=== PATIENT | female | born 1990 | race Caucasian/White ===

== ENCOUNTER 2019-08-05 17:22 | Emergency (ER) | payer MEDICAID, SELFPAY ==
[2019-08-05 17:24] VITALS: BP 130/81; PULSE 122; RESP 14; TEMP 37.4; O2SAT 100; BMI 33.0
--- NOTE | 2019-08-05 17:47 | ED.DCSUM_ITS ---
- ER Visit Summary Date of Service: 08/05/19 Chief Complaint: Nausea vomiting, urinary tract infection History of Present Illness: The patient is a 28 F who presents with nausea, vomiting, chills that became worse today. Patient was seen yesterday at an urgent care. Patient states she was diagnosed with a urinary tract infection at that time. Patient states she received injections of Rocephin in her hips. Patient states she was given a prescription for an antibiotic. Patient is currently on Keflex. Patient states she is presently 15 weeks . Patient states she is having persistent pain in her right flank. 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 She states she has not seen her HIDE MEASURING MACHINE OPERATOR yet for this . Physical Examination: Vital signs are stable except for a mild tachycardia of 122. Patient is afebrile. Patient is in no acute distress. Oral mucosa is pink and moist. Neck is supple. Trachea is midline. There is no JVD noted. Heart was regular rate and rhythm. Lungs are clear and equal bilaterally. Abdomen is soft. Bowel sounds are normal. There is some mild right upper quadrant tenderness. There is no rebound or guarding. There is no suprapubic tenderness. There is some right CVA tenderness. Cranial nerves II through XII are intact. There are no focal motor or sensory deficits noted. Test Results: CBC shows a slight leukocytosis of 11.5. Comprehensive metabolic profile was within normal limits. Urinalysis does not show any evidence of urinary tract infection. Quantitative hCG was 38,047. Ultrasound of the pelvis was obtained. There is an intrauterine at approximate 12 to 13 weeks with a low-lying placenta. Ultrasound of the kidneys and ureter were obtained due to the right flank pain. There is no abnormality of the kidneys or ureter. There is an incidental finding of cholelithiasis. These were interpreted by the radiologist and reviewed by myself. Emergency Department Course and Treatment: Patient was given IV fluids and Tylenol here. Patient felt better on reevaluation. Patient was given her results. Patient was instructed to follow-up with her HIDE MEASURING MACHINE OPERATOR in 5 to 7 days. Patient understood and was agreeable with the plan. All questions were answered. Disposition: Discharge home Impression: Right flank pain This note was generated with [employer] dictation software. It may contain incorrect words, spelling, and punctuation that were not noted in review of the chart prior to signing ED Disposition - Plan for ED Patient: Disposition: Home or Assisted Living Diagnosis: Right flank pain, Additional Instructions: Continue Tylenol as needed for pain. Follow-up with your HIDE MEASURING MACHINE OPERATOR in 5 to 7 days.
[2019-08-05 18:04] LABS: Bacteria 0 SEEN /hpf (None Seen); Mucous, Urine 0 SEEN /hpf (<or=2+); Red Blood Cells-Urine 0 SEEN /hpf (0-5)
[2019-08-05 18:07] LABS: Color, Urine Yellow (Yellow); Glucose, Dipstick Normal (Normal); Ketone-Dipstick Negative (Negative); Leukocyte Esterase-Dipstick 25 /ul (Negative); Nitrite-Dipstick Negative (Negative); Occult Blood-Urine Negative /ul (Negative); Protein-Dipstick 15 mg/dl (Negative); Urine Bilirubin Dipstick Negative (Negative); Urine Clarity Clear (Clear); Urine Urobilinogen 1 mg/dl (Normal)
[2019-08-05 18:09] LABS: Absolute Lymphocyte Count 1.05 X10^3/uL (0.83-4.51); Absolute Neutrophil Count 9.6 X10^3/uL (2.0-7.7); Basophil# 0.02 X10^3/uL; Basophil% 0.2 % (0-1); Eosinophil# 0.03 X10^3/uL; Eosinophils% 0.3 % (0-5); Hematocrit 38.3 % (37-47); Hemoglobin 12.9 g/dL (12.0-15.0); Lymphocyte # 1.05 X10^3/ul (4.0); Lymphocyte % 9.2 % (19-41); Mean Corp Hgb Conc 33.7 g/dL (32-36); Mean Corpuscular Hgb 31.9 pg (27.0-32.0); Mean Corpuscular Volume 94.6 fL (81-99); Monocyte# 0.72 X10^3/uL; Monocyte% 6.3 % (0-10); NRBC Flagged by Analyzer 0 % (0-5); Neutrophil # 9.61 X10^3/uL (2.7-7.7); Neutrophil % 83.7 % (47-70); Platelet Count 220 K/mm3 (150-450); RBC Distribution Width CV 12.7 % (11.6-14.6); Red Blood Count 4.05 M/mm3 (4.2-5.4); White Blood Count 11.5 K/mm3 (4.4-11.0)
[2019-08-05 18:14] LABS: Squamous Epithelial Cells - UA 0-5 SEEN /hpf (5-10); White Blood Cells 0-5 SEEN /hpf (0-5)
[2019-08-05] MEDS: Acetaminophen 500 MG Tablet 1000 MG PO (18:21)
[2019-08-05] MEDS: 0.9% Normal Saline 1,000 ML 1000 ML IV (18:21)
[2019-08-05 18:23] VITALS: BP 130/81; PULSE 122; RESP 14; TEMP 37.4; O2SAT 100
[2019-08-05 18:30] LABS: ALB/GLOB Ratio 0.9 RATIO (0.9-2.4); AST(SGOT) 37 U/L (15-37); Alanine Aminotransfer ALT/SGPT 37 U/L (13-56); Albumin, Serum 3.4 g/dL (3.2-5.0); Alkaline Phosphatase 115 U/L (45-117); Anion Gap 7 (5-15); BUN 6 mg/dL (7-18); BUN/Creat Ratio 10.6 RATIO (10-20); Chloride 104 mmol/L (98-107); Creatinine, Serum 0.57 mg/dL (0.55-1.02); EST Glomerular Filtration Rate 135 mL/min (>60); Est Glom Filt Rate - Afr Amer 164 mL/min (>60); Estimated Creatinine Clearance 111.87 ml/min; Globulin 3.7 g/dL (2.2-4.2); Glucose 79 mg/dL (74-106); Potassium 3.7 mmol/L (3.5-5.1); Protein, Total 7.1 g/dL (6.4-8.2); Sodium Level 136 mmol/L (136-145)
--- NOTE | 2019-08-05 19:43 | US_ITS ---
STUDY: FIRST TRIMESTER OBSTETRICAL ULTRASOUND REASON FOR EXAM: Female, 28 years old abdominal cramps flank pain LMP: TECHNIQUE: Transabdominal and transvaginal TECHNICAL QUALITY: Adequate. PRIOR ULTRASOUND: None. FINDINGS: There is visualization of a single gestational sac in a normal intrauterine position.. The gestational sac shape is within normal limits. Yolk sac is nonvisualized. Low-lying anterior placenta is noted covering the cervical os consistent with placenta previous There is visualization of a live embryo. The crown-rump length (CRL) measures 5.8 cm, indicating an estimated gestational age (EGA) of 12 weeks, 3 days. There is demonstrated cardiac activity with a heart rate of 167 bpm. The estimated gestation age (EGA) by LMP is 15 weeks, 6 days. The estimated date of delivery (MARCIN) by LMP is January 21, 2020 . The estimated gestation age (EGA) by US is 12 weeks, 3 days. The estimated date of delivery (MARCIN) by US is February 14, 2020. The uterus measures 13.6 x 9.7 x 8.1 cm. There is no demonstrated uterine fibroid. Cervical length is 3.3 cm Normal ovaries are not visualized. There is no adnexal mass There is no fluid in the cul de sac. US/Init OB < 14Wks US IMPRESSION: Viable intrauterine gestation approximately 12-13 weeks gestational age. Low-lying placenta currently covering the internal os. Cervical length 3.3 cm Recommend follow-up studies to assess for placental localization later in Electronically Signed: Quique Gutierrez MD at 21:39 EST , Service support ,
--- NOTE | 2019-08-05 19:43 | US_ITS ---
STUDY: RENAL ULTRASOUND - COMPLETE REASON FOR EXAM: Female, 28 years old. Right flank pain TECHNIQUE: Ultrasound evaluation of the kidneys was performed with real-time and static martinez-scale imaging. COMPARISON: None. FINDINGS: RIGHT KIDNEY: Normal location of the right kidney, which is normal in size. The right kidney measures 12.1 x 5.6 x 4.4 cm. There is a normal cortex of the right kidney. The renal cortex measures 1.8 cm. There is no right renal mass or cyst. There are no right renal calculi. There is no right hydronephrosis. DISTAL RIGHT URETER: There is non-visualization of the distal right ureter. There is no demonstrated right ureterovesical junction calculus. There is a visualized right ureteral jet. LEFT KIDNEY: Normal location of the left kidney, which is normal in size. The left kidney measures 11.1 x 5.4 x 5.2 cm. There is a normal cortex of the left kidney. The renal cortex measures 1.9 cm. There is no left renal mass or cyst. There are no left renal calculi. There is no left hydronephrosis. DISTAL LEFT URETER: There is non-visualization of the distal left ureter. There is no demonstrated left ureterovesical junction calculus. There is a visualized left ureteral jet. BLADDER: The distended urinary bladder has a volume of 34 ml. There is a normal wall thickness of the distended urinary bladder. There is no demonstrated mass within the urinary bladder. There are no demonstrated bladder calculi. Incidental finding of cholelithiasis US/Kidney and Bladder IMPRESSION: Normal ultrasound of the kidneys and urinary bladder. Incidental finding of cholelithiasis. MRI/MRCP would be helpful to exclude possibility of acute cholecystitis if indicated Electronically Signed: Quique Gutierrez MD at 21:42 EST , Service support ,
[2019-08-05 21:00] VITALS: BP 110/81; PULSE 99; RESP 18; TEMP 37.2; O2SAT 98
[2019-08-05 21:22] VITALS: BP 110/81; PULSE 101; RESP 18; O2SAT 98
[2019-08-05 21:58] VITALS: BP 102/68; PULSE 92; RESP 18; O2SAT 97
== END 2019-08-05 22:03 | disposition home or self-care (01) ==
PROVIDERS: Emergency Provider Emergency Medicine
DX: O26.892 Other specified pregnancy related conditions, second trimester (principal); R10.9 Unspecified abdominal pain; O99.612 Diseases of the digestive system complicating pregnancy, second trimester; K80.20 Calculus of gallbladder without cholecystitis without obstruction; R11.2 Nausea with vomiting, unspecified; O44.42 Low lying placenta NOS or without hemorrhage, second trimester; O99.332 Smoking (tobacco) complicating pregnancy, second trimester; Z3A.15 15 weeks gestation of pregnancy; Z87.440 Personal history of urinary (tract) infections
CPT/HCPCS: 76770; 76801; 76817; 80053; 81001; 84702; 85025; 96360; 99285; J7030

== ENCOUNTER 2021-08-11 03:23 | Emergency (ER) | payer MEDICAID, SELFPAY ==
[2021-08-11 03:26] VITALS: BP 114/75; PULSE 111; RESP 18; TEMP 37; O2SAT 96; BMI 27.7
--- NOTE | 2021-08-11 04:00 | ED.VIS.GI ---
HPI HPI - GI History of Present Illness Chief Complaint: Abd Pain Informant: patient Narrative Narrative: Patient is a 30-year-old female present with increased abdominal distention. She states been going on for the past 3 days. She has had decreased oral intake and nausea. She is continue to pass gas and have normal bowel movements. She was seen at [facility] yesterday morning where she states that it is CT of her belly and urine. They told her she had some swelling and did not do anything else. She states they made me feel stupid. Patient denies any urinary symptoms. She states has had a low-grade temp for the past few days. She does admit to history of IV drug use, heroine and methamphetamines. She states she just got out of skilled nursing after being there for 40 days and is only used heroin a couple times. She is complaining of associated abdominal discomfort. She is concerned with her history of IV drug use that she might have a staph infection in her abdomen that is causing her symptoms. She states she has been told she has hepatitis and liver cirrhosis in the past. [facility] Medical History Hepatitis C Heroin abuse Home Medications cephalexin 500 mg PO 4X/DAY 08/05/19 [History Last Taken Unknown] doxycycline hyclate 100 mg PO BID #20 cap 08/11/21 [Rx Last Taken Unknown] mupirocin 1 applic TOPICAL TID #1 tube 08/11/21 [Rx Last Taken Unknown] ondansetron HCl [Zofran] 4 mg PO Q6H PRN #20 tab 08/11/21 [Rx Last Taken Unknown] potassium chloride 20 meq PO DAILY #10 cap 08/11/21 [Rx Last Taken Unknown] Allergy/AdvReac Type Severity Reaction Status Date / Time latex AdvReac Rash Verified 08/11/21 03:28 Social History Smoking Status: Current every day smoker tobacco type: cigarettes ROS ROS ED Constitutional Constitutional ED: Reports chills and fever(s) ENT ENT ED: Denies rhinorrhea Cardiovascular Cardiovascular: Denies chest pain Respiratory/Chest Respiratory/Chest: Denies cough or dyspnea Gastrointestinal Gastrointestinal: Reports abdominal pain and nausea; Denies diarrhea, melena or vomiting Genitourinary Genitourinary ED: Denies dysuria or hematuria Musculoskeletal Musculoskeletal: Denies myalgias Integumentary Denies rash Neurologic Neurologic: Denies headache(s) or weakness Psychiatric Psychiatric: Denies depression EXAM Physical Exam Const Vital Signs: 08/11/21 03:26 08/11/21 05:28 08/11/21 07:10 Temperature 98.6 F Temperature Source Temporal Pulse Rate 111 H Respiratory Rate 18 17 Blood Pressure 114/75 Blood Pressure Mean 88 Pulse Ox 96 100 Oxygen Delivery Method Room Air Room Air Positive well nourished and well developed General Appearance ED: well developed HEENT Reports moist mucous membranes normocephalic and atraumatic Eyes PERRL and EOMs intact bilaterally General Eye ED: Negative for scleral icterus Neck supple and no JVD Resp normal respiratory effort and clear to auscultation bilaterally Cardio regular rate, regular rhythm and no murmurs GI GI Narrative: Positive fluid wave Inspection: abdominal distention Auscultation: normoactive bowel sounds Palpation: soft and tender other (Diffuse) Back/Spine no CVA tenderness Extremity full ROM General Extremety ED: Negative for edema or tenderness General Extremity: Negative for edema Neuro moves all extremities Sensorium / Orientation: alert Motor Exam: Negative for general weakness Skin Skin Narrative: Patient has abrasions on her forehead and catholic. She states it is from skin picking. She also has linear abrasion over her ventral right forearm and down the entire length of dorsal forearm. Patient states it is from a dog scratching her. General Skin Exam: Negative for jaundice Rashes: no rashes and No rashes noted MDM MDM MDM Narrative Medical decision making narrative: Patient evaluated for abdominal distention and discomfort. She appears nontoxic and in no acute distress. She is mildly tachycardic in the ER. She has a significant history of IV drug use, hepatitis and methamphetamine abuse. She was seen at an outside ER earlier today and had a CT of her abdomen pelvis. It showed moderate volume of intra-abdominal pelvic water density ascites. No free air. Extensive small bowel thickening/submucosal edema probably involving the mid to distal small bowel to the level of the terminal ileum. There also appears to be involvement of the cecum. Normal appendix. Etiology is diffuse enteritis identified with certainty but in addition to inflammatory bowel disease, possibility of angioedema or hypoproteinemia is also considered. Small dependent layering right pleural effusion. Bedside ultrasound performed by myself shows of free fluid in the abdomen. She is not tenderness out of proportion. Her lactate is normal. She does have a low potassium and is given potassium replacement in the ER. She be discharged home on a course of potassium. Case is discussed with GI on-call, Dr. Guthrie, he feels that if the patient is not having significant pain she would be stable for outpatient follow-up. Patient is given his information for outpatient follow-up. She is counseled on the need for outpatient follow-up and verbalizes agreement understand with this. She is encouraged to refrain from any drug use. At time of access interview patient states that she is having significant wounds on her buttocks. These are evaluated patient has multiple macerated excoriations of the buttocks. It is possible she could have associated staph infection. She be placed on doxycycline for this. She is given first dose in the emergency room. She also be given a prescription for mupirocin ointment. At this time I do not think patient is in overt liver failure as her platelets are normal. She is acting appropriately does not appear encephalopathic. Will be discharged home. Lab Data Attestation: I reviewed the patient's lab results. Labs: Laboratory Results - last 24 hr 08/11/21 08/11/21 08/11/21 04:47 04:47 04:47 WBC 8.6 RBC 4.28 Hgb 12.6 Hct 38.8 MCV 90.7 MCH 29.4 MCHC 32.5 RDW Std Deviation 53.8 H RDW Coeff of Altagracia 16.1 H Plt Count 389 MPV 10.7 Immature Gran % (Auto) 0.900 Neut % (Auto) 59.8 Lymph % (Auto) 27.1 [place] % (Auto) 8.1 Eos % (Auto) 3.6 Baso % (Auto) 0.5 Absolute Neuts (auto) 5.2 Absolute Lymphs (auto) 2.34 Nucleated RBC % 0 Sodium 140 Potassium 2.9 L Chloride 106 Carbon Dioxide 28.0 Anion Gap 6 BUN 3 L Creatinine 0.50 L Estim Creat Clear Calc 125.28 Est GFR (MDRD) Af Amer 186 Est GFR (MDRD) Non-Af 154 BUN/Creatinine Ratio 6.0 L Glucose 82 Lactic Acid 1.2 Calcium 8.4 L Total Bilirubin 0.30 Direct Bilirubin 0.15 AST 12 L ALT 29 Alkaline Phosphatase 86 Total Protein 6.2 L Albumin 2.6 L Globulin 3.6 Lipase 48 L Urine Color Urine Clarity Urine pH Ur Specific [place] Urine Protein Urine Glucose (UA) Urine Ketones Urine Occult Blood Urine Nitrite Urine Bilirubin Urine Urobilinogen Ur Leukocyte Esterase Urine RBC Urine WBC Ur Squamous Epith Cells Urine Bacteria Urine Mucus 08/11/21 04:47 WBC RBC Hgb Hct MCV MCH MCHC RDW Std Deviation RDW Coeff of Altagracia Plt Count MPV Immature Gran % (Auto) Neut % (Auto) Lymph % (Auto) [place] % (Auto) Eos % (Auto) Baso % (Auto) Absolute Neuts (auto) Absolute Lymphs (auto) Nucleated RBC % Sodium Potassium Chloride Carbon Dioxide Anion Gap BUN Creatinine Estim Creat Clear Calc Est GFR (MDRD) Af Amer Est GFR (MDRD) Non-Af BUN/Creatinine Ratio Glucose Lactic Acid Calcium Total Bilirubin Direct Bilirubin AST ALT Alkaline Phosphatase Total Protein Albumin Globulin Lipase Urine Color Yellow Urine Clarity Clear Urine pH 7.0 Ur Specific [place] 1.005 Urine Protein Negative Urine Glucose (UA) Normal Urine Ketones Negative Urine Occult Blood 250 H Urine Nitrite Negative Urine Bilirubin Negative Urine Urobilinogen Normal Ur Leukocyte Esterase Negative Urine RBC 0-5 SEEN Urine WBC 0 SEEN Ur Squamous Epith Cells 0 SEEN Urine Bacteria 0 SEEN Urine Mucus 0 SEEN Discharge Plan Triage Chief Complaint: Abd Pain ED Provider: Radha Moya Dx/Rx/DC Orders Clinical Impression: Abdominal ascites, Gastroenteritis, Acute hypokalemia, Cellulitis of buttock, Polysubstance abuse Instructions: ED Ascites, ED Gastroenteritis, Noninfectious, ED Hypokalemia Prescriptions: New doxycycline hyclate 100 mg capsule 100 mg PO BID Qty: 20 RF: 0 ondansetron HCl [Zofran] 4 mg tablet 4 mg PO Q6H PRN (Reason: nausea and vomiting) Qty: 20 RF: 0 mupirocin 2 % ointment 1 applic topical TID Qty: 1 RF: 0 potassium chloride 10 mEq capsule, extended release 20 meq PO DAILY Qty: 10 RF: 0 No Action cephalexin 500 MG capsule 500 mg PO 4X/DAY RF: 0 Primary Care Provider: Care Physician,No Primary Referrals: Berto Guthrie DO [STAFF PHYSICIAN] - 3-5 Days Naz Cantu [NON-STAFF] - Care Physician,No Primary [Primary Care Provider] - Activity Restrictions/Additional Instructions: Please follow-up with your GI doctor, Dr. Guthrie, for your stomach. Your potassium is low. Please take potassium supplements prescribed today and increase your potassium in your regular diet. You been prescribed antibiotics for skin infection. Disposition Disposition: Home, Self Care
[2021-08-11 04:55] LABS: Bacteria 0 SEEN /hpf (None Seen); Mucous, Urine 0 SEEN /hpf (<or=2+); Squamous Epithelial Cells - UA 0 SEEN /hpf (5-10); White Blood Cells 0 SEEN /hpf (0-5)
[2021-08-11 04:56] LABS: Absolute Lymphocyte Count 2.34 X10^3/uL (0.83-4.51); Absolute Neutrophil Count 5.2 X10^3/uL (2.0-7.7); Basophil# 0.04 X10^3/uL; Basophil% 0.5 % (0-1); Eosinophil# 0.31 X10^3/uL; Eosinophils% 3.6 % (0-5); Hematocrit 38.8 % (37-47); Hemoglobin 12.6 g/dL (12.0-15.0); Lymphocyte # 2.34 X10^3/ul (0.83-4.51); Lymphocyte % 27.1 % (19-41); Mean Corp Hgb Conc 32.5 g/dL (32-36); Mean Corpuscular Hgb 29.4 pg (27.0-32.0); Mean Corpuscular Volume 90.7 fL (81-99); Mean Platelet Vol. 10.7 fl (6.2-12.0); Monocyte% 8.1 % (0-10); NRBC Flagged by Analyzer 0 % (0-5); Neutrophil # 5.17 X10^3/uL (2.7-7.7); Neutrophil % 59.8 % (47-70); Platelet Count 389 K/mm3 (150-450); RBC Distribution Width CV 16.1 % (11.6-14.6); RBC Distribution Width SD 53.8 fl (35.1-43.9); Red Blood Count 4.28 M/mm3 (4.2-5.4); White Blood Count 8.6 K/mm3 (4.4-11.0)
[2021-08-11 04:57] LABS: Color, Urine Yellow (Yellow); Glucose, Dipstick Normal (Normal); Ketone-Dipstick Negative (Negative); Leukocyte Esterase-Dipstick Negative /ul (Negative); Nitrite-Dipstick Negative (Negative); Occult Blood-Urine 250 /ul (Negative); Protein-Dipstick Negative (Negative); Specific Gravity, Urine 1.005 (1.002-1.030); Urine Bilirubin Dipstick Negative (Negative); Urine Clarity Clear (Clear); Urine Urobilinogen Normal (Normal)
[2021-08-11 05:04] LABS: Red Blood Cells-Urine 0-5 SEEN /hpf (0-5)
[2021-08-11 05:20] LABS: AST(SGOT) 12 U/L (15-37); Alanine Aminotransfer ALT/SGPT 29 U/L (13-56); Albumin, Serum 2.6 g/dL (3.2-5.0); Alkaline Phosphatase 86 U/L (45-117); Anion Gap 6 (5-15); BUN 3 mg/dL (7-18); Bilirubin, Direct 0.15 mg/dL (0.00-0.30); Calcium,Total 8.4 mg/dL (8.5-10.1); Chloride 106 mmol/L (98-107); EST Glomerular Filtration Rate 154 mL/min (>60); Est Glom Filt Rate - Afr Amer 186 mL/min (>60); Estimated Creatinine Clearance 125.28 ml/min; Globulin 3.6 g/dL (2.2-4.2); Glucose 82 mg/dL (74-106); Lactic Acid 1.2 mmol/L (0.4-1.9); Lipase 48 U/L (73-393); Potassium 2.9 mmol/L (3.5-5.1); Protein, Total 6.2 g/dL (6.4-8.2); Sodium Level 140 mmol/L (136-145)
[2021-08-11] MEDS: Ketorolac 15 MG/ML Vial IV (05:26)
[2021-08-11] MEDS: Ondansetron 4 MG/2 ML Vial IV (05:26)
[2021-08-11 05:28] VITALS: O2SAT 100
[2021-08-11 07:10] VITALS: RESP 17
[2021-08-11 07:41] VITALS: BP 124/69; PULSE 80; RESP 17; TEMP 36.8; O2SAT 98
[2021-08-11] MEDS: Potassium Chloride Oral Tablet 20 MEQ 40 MEQ PO (07:42)
[2021-08-11] MEDS: Doxycycline 100 MG CAPSULE PO (07:42)
== END 2021-08-11 07:47 | disposition home or self-care (01) ==
PROVIDERS: Emergency Provider Emergency Medicine
DX: R18.8 Other ascites (principal); K52.9 Noninfective gastroenteritis and colitis, unspecified; E87.6 Hypokalemia; L03.317 Cellulitis of buttock; F11.10 Opioid abuse, uncomplicated; F19.10 Other psychoactive substance abuse, uncomplicated; F17.210 Nicotine dependence, cigarettes, uncomplicated; Z79.899 Other long term (current) drug therapy
CPT/HCPCS: 80048; 80076; 81001; 83605; 83690; 85025; 96374; 96375; 99283; A4216; J2405

== ENCOUNTER → 2021-08-13 14:29 | Outpatient (CLI) | payer MEDICAID, SELFPAY ==
[2021-08-13 15:24] LABS: Erythrocyte Sedimentation Rate 10 mm/hr (0-30)
[2021-08-13 15:25] LABS: International Normalized Ratio 1.1; Prothrombin Time (Protime)PT. 13.5 SECONDS (11.7-14.9)
[2021-08-13 15:26] LABS: Absolute Lymphocyte Count 1.19 X10^3/uL (0.83-4.51); Absolute Neutrophil Count 7.1 X10^3/uL (2.0-7.7); Basophil# 0.06 X10^3/uL; Basophil% 0.7 % (0-1); Eosinophil# 0.14 X10^3/uL; Eosinophils% 1.5 % (0-5); Hematocrit 39.3 % (37-47); Hemoglobin 12.8 g/dL (12.0-15.0); Lymphocyte # 1.19 X10^3/ul (0.83-4.51); Lymphocyte % 13.1 % (19-41); Mean Corp Hgb Conc 32.6 g/dL (32-36); Mean Corpuscular Hgb 29.3 pg (27.0-32.0); Mean Corpuscular Volume 89.9 fL (81-99); Mean Platelet Vol. 10.7 fl (6.2-12.0); Monocyte# 0.44 X10^3/uL; Monocyte% 4.9 % (0-10); NRBC Flagged by Analyzer 0 % (0-5); Neutrophil # 7.14 X10^3/uL (2.7-7.7); Neutrophil % 78.9 % (47-70); Platelet Count 451 K/mm3 (150-450); RBC Distribution Width CV 16.1 % (11.6-14.6); RBC Distribution Width SD 53.6 fl (35.1-43.9); Red Blood Count 4.37 M/mm3 (4.2-5.4); White Blood Count 9.1 K/mm3 (4.4-11.0)
[2021-08-13 15:59] LABS: ALB/GLOB Ratio 0.8 RATIO (0.9-2.4); AST(SGOT) 12 U/L (15-37); Alanine Aminotransfer ALT/SGPT 23 U/L (13-56); Albumin, Serum 3.3 g/dL (3.2-5.0); Alkaline Phosphatase 97 U/L (45-117); Anion Gap 9 (5-15); BUN 7 mg/dL (7-18); BUN/Creat Ratio 11.9 RATIO (10-20); Calcium,Total 8.8 mg/dL (8.5-10.1); Chloride 106 mmol/L (98-107); Creatinine, Serum 0.59 mg/dL (0.55-1.02); EST Glomerular Filtration Rate 128 mL/min (>60); Est Glom Filt Rate - Afr Amer 155 mL/min (>60); Globulin 4.1 g/dL (2.2-4.2); Glucose 84 mg/dL (74-106); LDH 169 U/L (84-246); Potassium 3.6 mmol/L (3.5-5.1); Protein, Total 7.4 g/dL (6.4-8.2); Sodium Level 139 mmol/L (136-145)
[2021-08-14 11:09] LABS: HIV - WCH Non-Reactive (Nonreactive)
[2021-08-14 11:14] LABS: Hepatitis C Antibody Reactive (Nonreactive)
[2021-08-16 10:53] LABS: HIV-1 RNA by PCR, Quant. < 20 copies/mL (.)
[2021-08-17 14:08] LABS: HCV Quant. RNA PCR 190 IU/mL (.); HEPATITIS B SURFACE AG Negative (Negative); Hepatitis A IgM Antibody Negative (Negative); Hepatitis B Core AB IgM Negative (Negative)
[2021-08-17 14:55] LABS: AFP, Tumor Marker 1.3 ng/mL (0.0-8.3); HCV log 10 2.279 (.)
[2021-08-17 14:58] LABS: Hep C Antibodies >11.0 s/co ratio (0.0-0.9)
== END ==
PROVIDERS: Referring Provider Internal Medicine Gastroenterology; Visit Provider Internal Medicine Gastroenterology
DX: R18.8 Other ascites (principal); B19.20 Unspecified viral hepatitis C without hepatic coma
CPT/HCPCS: 36415; 80053; 80074; 82105; 83615; 85025; 85610; 85652; 86140; 86703; 86803; 87521; 87522; 87536; 87902

== ENCOUNTER 2021-08-25 15:42 | Inpatient (IN) | payer MEDICAID, SELFPAY ==
[2021-08-25 15:43] VITALS: BP 110/82; PULSE 119; RESP 18; TEMP 36.6; O2SAT 100; BMI 26.4
[2021-08-25 16:04] VITALS: BP 98/66; PULSE 103; RESP 16; O2SAT 99
--- NOTE | 2021-08-25 16:04 | EDS_ITS ---
HPI History of Present Illness Chief Complaint: Substance Abuse Informant: patient Narrative Narrative: 30-year-old female presents the emergency room requesting detox from fentanyl. Patient states that she has been using off and on for the past 8 years. She was recently clean for couple months but then started using at the end of July. Her significant other is here also requesting detox but also with a chief complaint of fever. She states she does not have any infectious symptoms. She notes chills hot flashes abdominal cramping and nausea. She states she does not have any pending legal issues other than being on probation. When asked specifically what has changed that made her want to seek help today she states that she is tired of living the life. Patient states that she understands she will not be in a same room as her significant other and there are no cell phones. PFSH PFSH Medical History Hepatitis C Heroin abuse Smoker Home Medications cephalexin 500 mg PO 4X/DAY 08/05/19 [History Last Taken Unknown] doxycycline hyclate 100 mg PO BID #20 cap 08/11/21 [Rx Last Taken Unknown] mupirocin 1 applic TOPICAL TID #1 tube 08/11/21 [Rx Last Taken Unknown] ondansetron HCl [Zofran] 4 mg PO Q6H PRN #20 tab 08/11/21 [Rx Last Taken Unknown] furosemide 20 mg tablet 20 mg PO BID #10 tab 08/13/21 [Rx Last Taken Unknown] potassium chloride 20 mEq tablet,extended release 20 meq PO DAILY #7 tab 08/13/21 [Rx Last Taken Unknown] tramadol 50 mg tablet 50 mg PO Q6H PRN #14 tab 08/13/21 [Rx Last Taken Unknown] Allergy/AdvReac Type Severity Reaction Status Date / Time latex AdvReac Rash Verified 08/25/21 15:43 Surgical History (Updated 08/25/21 @ 16:[address] George Gandhi DO) Hx of cholecystectomy Social History (Updated 08/25/21 @ 16:[address] George Gandhi DO) Smoking Status: Current every day smoker tobacco type: cigarettes substance use type: crack/cocaine, heroin, amphetamines and methamphetamine ROS ROS ED Constitutional Constitutional ED: Reports chills and sweats; Denies fever(s) or weight loss Eyes Eyes: Denies change in vision or diplopia ENT ENT ED: Denies ear pain, rhinorrhea or sore throat Cardiovascular Cardiovascular: Denies chest pain, orthopnea, palpitations or racing heartbeat Respiratory/Chest Respiratory/Chest: Denies cough, dyspnea or orthopnea Gastrointestinal Gastrointestinal: Reports abdominal pain and nausea; Denies diarrhea or vomiting Genitourinary Genitourinary ED: Denies dysuria, hematuria or urinary frequency Musculoskeletal Musculoskeletal: Denies arthralgias or myalgias Integumentary Denies abscess or rash Neurologic Neurologic: Reports headache(s); Denies weakness Psychiatric Psychiatric: Denies anxiety, depression, suicidal ideation or suicidal thoughts Endocrine Endocrinology: Denies polydipsia, polyphagia or polyuria Allergic/Immunologic Allergic/Immunologic ED: Denies mouth swelling, tongue swelling or urticaria EXAM Physical Exam Const Vital Signs: 08/25/21 15:43 08/25/21 16:04 Temperature 97.8 F Temperature Source Temporal Pulse Rate 119 H 103 H Respiratory Rate 18 16 Blood Pressure 110/82 H 98/66 Blood Pressure Mean 91 76 Pulse Ox 100 99 Oxygen Delivery Method Room Air Room Air Positive well nourished and well developed General Appearance ED: well developed HEENT Reports normocephalic, head/scalp atraumatic, TM's clear and moist mucous membranes Negative for trauma Tympanic Membrane ED: Yes TM's clear Eyes PERRL and EOMs intact bilaterally Neck no lymphadenopathy, supple and no JVD Resp normal respiratory effort and clear to auscultation bilaterally Cardio regular rate and no murmurs Rate: tachycardic GI normal to inspection, nondistended, normoactive bowel sounds and non-tender Palpation: soft Back/Spine no CVA tenderness and normal ROM Thoracic Spine / Upper Back: Negative for paraspinal muscle tenderness Extremity normal to inspection General Extremety ED: Negative for edema General Extremity: Negative for edema Neuro oriented x3 and CN's II-XII intact bilaterally Sensorium / Orientation: alert Motor Exam: strength 5/5 throughout Psych mental status grossly normal Mood & Affect: Negative for depressed or tearful Skin no rashes or lesions noted and no wounds Skin Narrative: Piloerection. There are numerous injection of the arms sites. I do not see any evidence of abscess on them. MDM MDM MDM Narrative Medical decision making narrative: Patient will be medically cleared. I will speak with the hospitalist regarding admission. Discharge Plan Dx/Rx/DC Orders Clinical Impression: Opiate withdrawal, Hepatitis C Disposition Disposition: Acute Care Hospital [facility]
--- NOTE | 2021-08-25 17:12 | HP.PCM.HOS_ITS ---
HPI - General General Date of Admission: 08/25/21 Date of Service: 08/25/21 Chief Complaint: Acute Opiate Withdrawal HPI Narrative The patient is a 30 y/o F w/ PMHx: Hepatitis C following w/ GI Dr. Guthrie, Tobacco use, Polysubstance abuse w/ IVDA (IV heroin approximately 1/2 g daily, IV fentanyl approximately 1/2 g daily, crack cocaine, methamphetamines) who presents to the [facility] ED on 08/25/21 w/ noted acute opiate withdrawal onset star ting on day of presentation following last dose ~ 24 hours prior with abdominal pain/cramping, generalized body aches and pains, rhinorrhea, piloerection, fatigue, restless leg, significant fatigue and restlessness. Patient interested in attaining clean status but specifically notes she does not want any Subutex and is interested only in some control. She does report that she is interested in discussions with case management as she would like to set up Vivitrol immediately at her discharge. Patient has been using for the last 3 years and has gone through withdrawal treatments prior. She notes in the past Subutex has not worked for her and is led to less effective outcomes. Work-up in the ED included T 97.8, heart rate 119, B.P 110/82, respiratory rate 18, on her percent on room air, pending CBC, CMP, UDS, ethyl alcohol level and testing upon evaluation. COVID-19 antigen testing as patient boyfriend also present in the ED for substance abuse evaluation with notable Covid type symptoms. PFSH Medical History Hepatitis C Heroin abuse IV drug user Polysubstance abuse Smoker Home Medications cephalexin 500 mg PO 4X/DAY 08/05/19 [History Last Taken Unknown] doxycycline hyclate 100 mg PO BID #20 cap 08/11/21 [Rx Last Taken Unknown] mupirocin 1 applic TOPICAL TID #1 tube 08/11/21 [Rx Last Taken Unknown] ondansetron HCl [Zofran] 4 mg PO Q6H PRN #20 tab 08/11/21 [Rx Last Taken Unknown ] furosemide 20 mg tablet 20 mg PO BID #10 tab 08/13/21 [Rx Last Taken Unknown] potassium chloride 20 mEq tablet,extended release 20 meq PO DAILY #7 tab 08/13/21 [Rx Last Taken Unknown] tramadol 50 mg tablet 50 mg PO Q6H PRN #14 tab 08/13/21 [Rx Last Taken Unknown] Allergy/AdvReac Type Severity Reaction Status Date / Time latex AdvReac Rash Verified 08/25/21 15:43 no significant family history (Patient denies any marked maternal or paternal family history including heart disease, diabetes, cancer.) Surgical History (Updated 08/25/21 @ 17:[address] Jamee Lanza MD) H/O dilation and curettage Hx of cholecystectomy Social History (Updated 08/25/21 @ 17:[address] Jamee Lanza MD) household members: significant other and other details: BF substance user/IV drugs w/ hepatitis C, they have a child together. Smoking Status: Current every day smoker tobacco type: cigarettes Smoking packs per day: 1 Smoking cigarettes per day: 20.0 alcohol intake: never substance use type: crack/cocaine, heroin, amphetamines, methamphetamine and other details: IVDA, ~ 1/2 gm fentanyl and heroin daily. ROS ROS Narrative Admission Review of Systems: CONSTITUTIONAL: No weight loss, fever, chills, + weakness or fatigue. HEENT: + Rhinorrhea, congestion Eyes: No visual loss, blurred vision, double vision or yellow sclerae. Ears, Nose, Throat: No hearing loss, sneezing or sore throat. SKIN: + facial picked regions, no erythema but recently initiated on antibiotics for infection/cellulitis. CARDIOVASCULAR: No chest pain, chest pressure or chest discomfort, palpitations, edema, orthopnea, syncopal events. RESPIRATORY: No shortness of breath, cough or sputum, wheezing, hemoptysis. GASTROINTESTINAL: + anorexia, nausea, abdominal cramping, No vomiting or diarrhea, melena, BRBPR. GENITOURINARY: No dysuria, frequency, urgency or retention. NEUROLOGICAL: + Restlessness, No headache, dizziness, syncope, paralysis, ataxia, numbness or tingling in the extremities, focal weakness, change in bowel or bladder control, seizure. MUSCULOSKELETAL: + muscle, back pain, joint pain or stiffness. HEMATOLOGIC: No anemia, bleeding or bruising. LYMPHATICS: No enlarged nodes. No history of splenectomy. PSYCHIATRIC: No history of depression or anxiety. ENDOCRINOLOGIC: No reports of sweating, cold or heat intolerance. No polyuria or polydipsia. ALLERGIES: No history of asthma, hives, eczema or rhinitis. Vital Signs Vital Signs Vital Signs: 08/25/21 15:43 08/25/21 16:04 Temperature 97.8 F Temperature Source Temporal Pulse Rate 119 H 103 H Respiratory Rate 18 16 Blood Pressure 110/82 H 98/66 Blood Pressure Mean 91 76 Pulse Ox 100 99 Oxygen Delivery Method Room Air Room Air Weight Weight: 140 lb Body Mass Index (BMI) 26.4 Physical Exam Narrative Physical Examination: General: Awake, alert, oriented x 3 and cooperative, seated upright in the ED bed, fatigued, restless, yawning frequently. Skin: Normal color, normal turgor, no icterus, no cyanosis except very staged track linder, facial picked regions including nasal bridge with scabs, no periwound erythema noted currently. HEENT: AT/NC, EOMI, PERRLA, dry MM, no carotid bruits or JVD noted, see skin. Lungs: Diminished, greater bases, appropriate effort, no rales, ronchi or wheezing. Heart: Tachycardic with regular rhythm; no gallop, rub audible. Abdomen: Soft, mild generalized comfort with palpation, ND, moderately hyperactive BS, no obvious evidence of HSM. Extremities: No cyanosis, clubbing, or edema. Neurological: Patient awake, alert, oriented as noted, cognitive function intact; pupils equally reactive to light and accommodation, cranial nerves II- XII grossly normal, moving all 4 extremities, no focal deficits, strength moderately global decrease secondary to acute presentation, extremely restless, fatigued. Psychiatric: Affect appears fatigued, restless, no acute evidence of depressive or anxiety feelings. Results Lab / Micro Data Result Diagrams: 08/25/21 17:02 08/25/21 17:02 Assessment & Plan Assessment/Plan (1) Opiate withdrawal: PLAN: The patient is a 30 y/o F w/ PMHx: Hepatitis C following w/ GI Friend, Tobacco use, Polysubstance abuse w/ IVDA (IV heroin approximately 1/2 g daily, IV fentanyl approximately 1/2 g daily, crack cocaine, methamphetamines) who presents to the [facility] ED on 08/25/21 w/ noted acute opiate withdrawal onset starting on day of presentation following last dose ~ 24 hours prior. #1. Acute Opiate Withdrawal: Routine labs including CBC, CMP, urine as well as urine testing pending upon evaluation of patient as long as testing is negative, will admit to medical surgical floor, per discussion with patient at length we will avoid any Subutex usage and continue with as needed agents only including tylenol, ibuprofen, bowel regimen, gabapentin, Bentyl, Vistaril, methocarbamol, clonidine, PRN nightly trazodone for insomnia, IV fluids, IV antiemetics. Will request consultation with case management for transition to next level of rehabilitation care and to discuss Vivitrol as patient is highly interested. #2. Polysubstance Abuse, IVDA Hx, History of Hepatitis C, Chronic: Patient currently not treated candidate for hepatitis C treatment currently as needs to be clean, sober x 6 months, documented attendance NA or AA meetings, counseling and ongoing negative drug screens. Currently following with GI, Dr. Guthrie therefore will defer coinfection testing as expect this to be done with follow-u p. #3. Recent cellulitis: Patient with significant skin picking, will continue topical mupirocin as well as oral doxycycline and Bactrim, verifying completion dates and will add. #4. Tobacco Abuse: Encouraged cessation, inpatient consultation per RT, NR if desired. #5. DVT prophylaxis: Low risk, encourage ambulation. Charges/Coding Visit Charges Inpatient E&M: 33566 Init Hosp L2
[2021-08-25 17:17] LABS: Absolute Lymphocyte Count 1.23 X10^3/uL (0.83-4.51); Absolute Neutrophil Count 7.6 X10^3/uL (2.0-7.7); Basophil# 0.06 X10^3/uL; Basophil% 0.6 % (0-1); Eosinophil# 0.24 X10^3/uL; Eosinophils% 2.5 % (0-5); Hematocrit 47.7 % (37-47); Hemoglobin 15.6 g/dL (12.0-15.0); Lymphocyte # 1.23 X10^3/ul (0.83-4.51); Lymphocyte % 12.9 % (19-41); Mean Corp Hgb Conc 32.7 g/dL (32-36); Mean Corpuscular Hgb 29.4 pg (27.0-32.0); Mean Corpuscular Volume 89.8 fL (81-99); Mean Platelet Vol. 10.7 fl (6.2-12.0); Monocyte# 0.35 X10^3/uL; Monocyte% 3.7 % (0-10); NRBC Flagged by Analyzer 0 % (0-5); Neutrophil # 7.58 X10^3/uL (2.7-7.7); Neutrophil % 79.9 % (47-70); Platelet Count 518 K/mm3 (150-450); RBC Distribution Width CV 14.9 % (11.6-14.6); RBC Distribution Width SD 49.7 fl (35.1-43.9); Red Blood Count 5.31 M/mm3 (4.2-5.4); White Blood Count 9.5 K/mm3 (4.4-11.0)
[2021-08-25 17:34] VITALS: BP 98/67; PULSE 102; RESP 15; TEMP 37.2; O2SAT 98
[2021-08-25 17:35] LABS: Alcohol, Blood (Medical)-Serum < 3.0 mg/dL
[2021-08-25 17:40] LABS: Amphetamine Urine VISTA NEGATIVE (<1000 ng/mL); Barbiturate Urine VISTA NEGATIVE (< 200 ng/mL); Benzodiazepine Urine VISTA NEGATIVE (< 200 ng/mL); Cocaine Urine VISTA NEGATIVE (< 300 ng/mL); Ecstacy Urine VISTA NEGATIVE (< 500 ng/mL); Methadone Urine VISTA NEGATIVE (< 300 ng/mL); PCP Urine VISTA NEGATIVE (< 25 ng/mL); THC Urine VISTA NEGATIVE (< 50 ng/mL); Vista UDS pH Range 8
[2021-08-25 17:41] LABS: ALB/GLOB Ratio 0.7 RATIO (0.9-2.4); AST(SGOT) 13 U/L (15-37); Alanine Aminotransfer ALT/SGPT 18 U/L (13-56); Albumin, Serum 3.5 g/dL (3.2-5.0); Alkaline Phosphatase 118 U/L (45-117); Anion Gap 6 (5-15); BUN 9 mg/dL (7-18); BUN/Creat Ratio 14.8 RATIO (10-20); Calcium,Total 9.3 mg/dL (8.5-10.1); Chloride 112 mmol/L (98-107); Creatinine, Serum 0.61 mg/dL (0.55-1.02); EST Glomerular Filtration Rate 123 mL/min (>60); Est Glom Filt Rate - Afr Amer 149 mL/min (>60); Estimated Creatinine Clearance 102.69 ml/min; Globulin 4.9 g/dL (2.2-4.2); Glucose 106 mg/dL (74-106); Potassium 3.9 mmol/L (3.5-5.1); Protein, Total 8.4 g/dL (6.4-8.2); Sodium Level 137 mmol/L (136-145)
--- NOTE | 2021-08-25 17:53 | CM.ED ---
Addendum entered by Shala Slater 08/25/21 19:05: YANET called Treatment Navigator and left voice mail message advising of patient going to room 309 for detox fentanyl. YANET requested call back if additional or more information is needed. Plan: MERY Slater [email or web address] Original Note: YANET Note Referral Source: Case Find Referral Reason: MERY HOLT met with patient. She reports she is at the ED for detox from Fentnyl. SHe reports using 1/2-1 gram a day of fentanyl. She reports last use yesterday. No current AOD linkage. YANET reviewed rules of [facility] including no personal items as they are locked up, no visitors and no phone. Patient said I wanna make sure my boyfriend if ok... medically.. he has a CT scan?. YANET will continue to follow. Shala MASON
[2021-08-25 18:24] LABS: Internal QC Validated? YES +Cl - CLEAR BKGD; Pregnancy, Serum, hCG Quali. NEGATIVE Negative
[2021-08-25 19:09] LABS: Bacteria 0 SEEN /hpf (None Seen); Mucous, Urine 0 SEEN /hpf (<or=2+); Red Blood Cells-Urine 0 SEEN /hpf (0-5); White Blood Cells 0 SEEN /hpf (0-5)
[2021-08-25 19:17] LABS: Color, Urine Yellow (Yellow); Glucose, Dipstick Normal (Normal); Ketone-Dipstick Negative (Negative); Leukocyte Esterase-Dipstick Negative /ul (Negative); Nitrite-Dipstick Negative (Negative); Occult Blood-Urine Negative /ul (Negative); Protein-Dipstick Negative (Negative); Specific Gravity, Urine 1.015 (1.002-1.030); Urine Bilirubin Dipstick Negative (Negative); Urine Clarity Turbid (Clear); Urine Urobilinogen Normal (Normal)
[2021-08-25 19:24] LABS: Amorphous Sediment 2+; Squamous Epithelial Cells - UA 0-5 SEEN /hpf (5-10)
[2021-08-25 19:55] VITALS: BP 101/71; PULSE 99; RESP 16; TEMP 36.6; O2SAT 99; BMI 23.5
[2021-08-25] MEDS: Buprenorphine HCl 2 MG TAB.SUBL SL (21:00)
[2021-08-25 21:05] VITALS: BP 106/73; PULSE 97; RESP 18; TEMP 37.1; O2SAT 100
[2021-08-25] MEDS: cloNIDine HCl 0.1 MG Tablet PO (21:07)
[2021-08-25] MEDS: hydrOXYzine PAM 25 MG Capsule 50 MG PO (21:07)
[2021-08-25] MEDS: Methocarbamol 750 MG Tablet 1500 MG PO (21:07)
[2021-08-25] MEDS: Ibuprofen 600 MG Tablet PO (21:08)
[2021-08-25] MEDS: Dicyclomine 10 MG Capsule 20 MG PO (21:08)
[2021-08-25] MEDS: Doxycycline 100 MG CAPSULE PO (21:09)
[2021-08-25] MEDS: traZODone 100 MG Tablet PO (21:09)
[2021-08-25] MEDS: Cephalexin 500 MG Capsule PO (21:09)
[2021-08-25] MEDS: Mupirocin Ointment 22gm Tube 1 APPLIC TOPICAL (21:09)
[2021-08-25] MEDS: 0.9% Saline Lock 10 ML Syringe IV (21:10)
[2021-08-26 02:43] VITALS: BP 96/65; PULSE 91; RESP 16; TEMP 36.8; O2SAT 99
[2021-08-26] MEDS: Methocarbamol 750 MG Tablet 1500 MG PO (05:50)
[2021-08-26] MEDS: hydrOXYzine PAM 25 MG Capsule 50 MG PO ×2 (05:50→15:05)
[2021-08-26] MEDS: Buprenorphine HCl 2 MG TAB.SUBL SL ×3 (05:50→20:41)
[2021-08-26] MEDS: Dicyclomine 10 MG Capsule 20 MG PO ×3 (05:50→20:40)
[2021-08-26] MEDS: Mupirocin Ointment 22gm Tube 1 APPLIC TOPICAL ×3 (05:57→20:41)
[2021-08-26 08:19] VITALS: O2SAT 99
[2021-08-26 10:00] VITALS: BP 97/64; PULSE 86; RESP 16; TEMP 36.8; O2SAT 98
[2021-08-26] MEDS: Cephalexin 500 MG Capsule PO ×2 (10:08→15:02)
[2021-08-26] MEDS: Doxycycline 100 MG CAPSULE PO (10:09)
[2021-08-26] MEDS: Loperamide 2 MG Capsule PO (10:15)
[2021-08-26] MEDS: Acetaminophen 325 MG Tablet 650 MG PO (10:15)
--- NOTE | 2021-08-26 11:08 | ADDICTION ---
This promotion writer met with PT to conduct ASAM, MSE, AUDIT, DUDIT assessments and to plan for d/c. PT A+Ox4 and participated actively. All assessments completed, faxed to [facility] and placed in PT's chart. PT plans to f/u with individual counselor at [facility] for MAT and follow-up counseling services. PT did not indicate a need for transportation post d/c from [facility].
--- NOTE | 2021-08-26 11:33 | PCS.PANDOC ---
PANDEMIC DOCUMENTATION INITIATED: Date: 05/18/2021 Time: 190
[2021-08-26 15:00] VITALS: BP 96/62; PULSE 97; RESP 16; TEMP 36.7; O2SAT 100
--- NOTE | 2021-08-26 15:10 | PCM.PN.HOSP ---
Subjective Subjective Patient reports that she is feeling fine at this time. Subutex was started overnight for withdrawal symptoms. She is interested in Vivitrol upon discharge. She states she feels much better at this time than she did on presentation. Objective Data Objective Data Vital Signs: Vital Signs Temp Pulse Resp BP Pulse Ox 98.2 F 86 16 97/64 98 08/26/21 10:00 08/26/21 10:00 08/26/21 10:00 08/26/21 10:00 08/26/21 10:00 Oxygen Delivery Method Room Air Weight: 56.4 kg Body Mass Index (BMI) 23.5 Intake & Output: Intake and Output for Last 24 Hours 08/24/21 08/25/21 08/26/21 23:59 23:59 23:59 Intake Total 400 / 400 Balance 400 / 400 Medical Nutrition Assessment Dietitian: Malnutrition Criteria Met Start: 08/26/21 11:39 Freq: Status: Active Protocol: Document 08/26/21 11:40 RMA (Rec: 08/26/21 11:40 RMA [id number]) Nutrition Malnutrition Evidence of Malnutrition Exists Yes Malnutrition (severe): Social/Behavioral/ Environmental Evidenced By Suboptimal Energy Intake ( Severe),Weight Loss (Severe) Clinical Problem Chronic Disease or Condition Related Malnutrition Etiology Severe protein-calorie malnutrition in the context of social circumstance/drug abuse related to inadequate oral intake Signs/Symptoms as evidenced by ~30% wt loss x 5-6 months and inadequate oral intake meeting less than 50% estimated nutrition needs Status Active Problem Recommendation Dietitian Recommendations/Changes Continue Regular diet/3 snacks daily as ordered. Will d/c ensure enlive with [facility] due to pt refusal. Will add 240ml chocolate milkshake w/ whole milk TID with meals. Lab / Micro Data Result Diagrams: 08/25/21 17:02 08/25/21 17:02 Labs: Laboratory Results - last 24 hr 08/25/21 17:02: WBC 9.5, RBC 5.31, Hgb 15.6 H, Hct 47.7 H, MCV 89.8, MCH 29.4, MCHC 32.7, RDW Std Deviation 49.7 H, RDW Coeff of Altagracia 14.9 H, Plt Count 518 H, MPV 10.7, Immature Gran % (Auto) 0.400, Neut % (Auto) 79.9 H, Lymph % (Auto) 12.9 L, Gilchrist % (Auto) 3.7, Eos % (Auto) 2.5, Baso % (Auto) 0.6, Absolute Neuts (auto) 7.6, Absolute Lymphs (auto) 1.23, Nucleated RBC % 0 08/25/21 17:02: Sodium 137, Potassium 3.9, Chloride 112 H, Carbon Dioxide 19.0 L, Anion Gap 6, BUN 9, Creatinine 0.61, Estim Creat Clear Calc 102.69, Est GFR (MDRD) Af Amer 149, Est GFR (MDRD) Non-Af 123, BUN/Creatinine Ratio 14.8, Glucose 106, Calcium 9.3, Total Bilirubin 0.90, AST 13 L, ALT 18, Alkaline Phosphatase 118 H, Total Protein 8.4 H, Albumin 3.5, Globulin 4.9 H, Albumin/Globulin Ratio 0.7 L 08/25/21 17:02: Ethyl Alcohol < 3.0 08/25/21 17:02: Serum , Qual NEGATIVE 08/25/21 17:08: Urine Opiates Screen NEGATIVE, Urine Methadone Screen NEGATIVE, Ur Barbiturates Screen NEGATIVE, Ur Phencyclidine Scrn NEGATIVE, Ur Amphetamines Screen NEGATIVE, U Methamphetamin-MDMA NEGATIVE, U Benzodiazepines Scrn NEGATIVE, Urine Cocaine Screen NEGATIVE, U Cannabinoids Screen NEGATIVE, Ur Drug Screen Comment 08/25/21 17:08: Urine Color Yellow, Urine Clarity Turbid, Urine pH 8.0, Ur Specific [place] 1.015, Urine Protein Negative, Urine Glucose (UA) Normal, Urine Ketones Negative, Urine Occult Blood Negative, Urine Nitrite Negative, Urine Bilirubin Negative, Urine Urobilinogen Normal, Ur Leukocyte Esterase Negative, Urine RBC 0 SEEN, Urine WBC 0 SEEN, Ur Squamous Epith Cells 0-5 SEEN, Amorphous Sediment 2+, Urine Bacteria 0 SEEN, Urine Mucus 0 SEEN Micro: Microbiology 08/25/21 17:02 Nasal Secretion SARS-CoV-2 Antigen (Rapid) - Final Physical Exam Const alert, oriented x3, no apparent distress and average body habitus Constitutional Narrative: Middle-aged white female sitting up in bed watching television, appears comfortable, nontoxic Exam Limitations: no limitations HEENT head/scalp atraumatic and moist oral mucous membranes Head and Scalp: normocephalic Resp normal respiratory effort, no retractions, no use of accessory muscles and clear to auscultation bilaterally Auscultation: Negative for crackles, rales, rhonchi or wheezes Cardio regular rate, regular rhythm, S1 normal heart sound, S2 normal heart sound, no murmurs, no rub, no gallops, no clicks and no JVD GI normal to inspection, nondistended, normoactive bowel sounds, soft to palpation, non-tender and non-distended Extremity no clubbing, cyanosis or edema Peripheral Pulses: Yes pulses 2+ throughout Skin skin turgor normal, no jaundice, no petechiae and no mottling Skin Narrative: Multiple skin lesions noted from picking, no current signs of active infection, no drainage or erythema Neuro oriented x3, moves all extremities and no focal motor deficits Sensorium / Orientation: awake and alert Speech: speech normal Assessment & Plan Assessment/Plan (1) Opiate withdrawal: (2) Hepatitis C: PLAN: Acute opiate withdrawal -Continue Subutex taper -Supportive medications -Patient would like Vivitrol upon discharge -180 has evaluated the patient and the discharge plan is for her to follow-up with an individual counselor at [facility] for MAT and follow-up counseling services Recent cellulitis -Patient with significant skin picking related to her polysubstance abuse -Based on review of medications she has completed her oral doxycycline and Keflex -We will discontinue these medications Hepatitis C -Patient is untreated if she is still using polysubstances -She was treated with a short course of Lasix but this was to be completed -She is following with Dr. Guthrie from gastroenterology -Recommend continued follow-up after discharge -No current acute issues Polysubstance abuse -Patient with history of IVDU -Tox screen on admission was negative -Treatment and process for opiate withdrawal DVT prophylaxis -Early ambulation
--- NOTE | 2021-08-26 17:29 | CT_ITS ---
EXAM: CT ABDOMEN AND PELVIS WITHOUT INTRAVENOUS CONTRAST CLINICAL INDICATION: hep C TECHNIQUE: Helically acquired images were obtained of the abdomen and pelvis without intravenous contrast. This CT exam was performed using one or more of the following dose reduction techniques: automated exposure control, adjustment of the mA and/or kV according to patient size, and/or use of iterative reconstruction technique. This report was created using [email or web address] report generation technology. COMPARISON: None. FINDINGS: LOWER THORAX: Unremarkable. Lung bases are clear. No cardiomegaly. No significant pericardial effusion. ABDOMEN: LIVER: Unremarkable. Homogeneous. GALLBLADDER AND BILE DUCTS: Gallbladder surgically absent. No intra- or extrahepatic biliary ductal dilation. PANCREAS: Unremarkable. No focal cystic mass. SPLEEN: Unremarkable. Normal size without focal cystic or solid mass. ADRENALS: Unremarkable. No nodules. KIDNEYS AND URETERS: Unremarkable. Normal renal size and position. No hydronephrosis. STOMACH AND BOWEL: Moderate length segment of wall thickening of bowel in the lower abdomen (image 129 series 2) with mild adjacent mesenteric edema suggesting enteritis, including infectious, inflammatory and edema causes. No stomach or bowel distention. PELVIS: APPENDIX: No evidence of acute appendicitis. BLADDER: Unremarkable. REPRODUCTIVE: Unremarkable as visualized. No mass. ABDOMEN and PELVIS: INTRAPERITONEAL SPACE: Mild pelvic ascites. No free air. BONES/JOINTS: Unremarkable. No suspicious lytic or blastic abnormality. SOFT TISSUES: Unremarkable. No discrete abdominal or pelvic wall hernia. VASCULATURE: Unremarkable. Abdominal aorta is non-dilated. LYMPH NODES: Unremarkable. No enlarged lymph nodes. CT/Abdomen/Pelvis without Cont IMPRESSION: 1. Mild pelvic ascites. No hepatic mass is demonstrated, limited evaluation without IV contrast. 2. Moderate length segment of wall thickening of bowel in the lower abdomen (image 129 series 2) with mild adjacent mesenteric edema suggesting enteritis, including infectious, inflammatory and edema causes. No bowel obstruction. Electronically Signed: Trenton Haines MD (Bro[place]) at 22:21 EST , Service support ,
[2021-08-26] MEDS: traZODone 100 MG Tablet PO (20:40)
[2021-08-26 20:47] VITALS: BP 92/63; PULSE 79; RESP 16; TEMP 36.8; O2SAT 98
[2021-08-27 04:47] VITALS: BP 93/56; PULSE 79; RESP 14; TEMP 36.4; O2SAT 100
[2021-08-27] MEDS: Buprenorphine HCl 2 MG TAB.SUBL SL ×2 (04:52→13:20)
[2021-08-27] MEDS: Mupirocin Ointment 22gm Tube 1 APPLIC TOPICAL ×3 (04:53→21:19)
--- NOTE | 2021-08-27 11:10 | PN.HOSP_ITS ---
Subjective Subjective Patient was sleeping but awoke easily upon my exam. Denies any complaints. Plan is for outpatient follow-up at [facility] after discharge. Objective Data Objective Data Vital Signs: Vital Signs Temp Pulse Resp BP Pulse Ox 97.5 F L 79 14 93/56 L 100 08/27/21 04:47 08/27/21 04:47 08/27/21 04:47 08/27/21 04:47 08/27/21 04:47 Oxygen Delivery Method Room Air Weight: 56.4 kg Body Mass Index (BMI) 23.5 Intake & Output: Intake and Output for Last 24 Hours 08/25/21 08/26/21 08/27/21 23:59 23:59 23:59 Intake Total 1000 / 1200 200 / 200 Balance 1000 / 1200 200 / 200 Medical Nutrition Assessment Dietitian: Malnutrition Criteria Met Start: 08/26/21 11:39 Freq: Status: Active Protocol: Document 08/26/21 11:40 RMA (Rec: 08/26/21 11:40 RMA [id number]) Nutrition Malnutrition Evidence of Malnutrition Exists Yes Malnutrition (severe): Social/Behavioral/ Environmental Evidenced By Suboptimal Energy Intake ( Severe),Weight Loss (Severe) Clinical Problem Chronic Disease or Condition Related Malnutrition Etiology Severe protein-calorie malnutrition in the context of social circumstance/drug abuse related to inadequate oral intake Signs/Symptoms as evidenced by ~30% wt loss x 5-6 months and inadequate oral intake meeting less than 50% estimated nutrition needs Status Active Problem Recommendation Dietitian Recommendations/Changes Continue Regular diet/3 snacks daily as ordered. Will d/c ensure enlive with [employer] due to pt refusal. Will add 240ml chocolate milkshake w/ whole milk TID with meals. Lab / Micro Data Result Diagrams: 08/25/21 17:02 08/25/21 17:02 Micro: Microbiology 08/25/21 17:02 Nasal Secretion SARS-CoV-2 Antigen (Rapid) - Final Radiography Diagnostic Testing: Radiology Impression Abdomen/Pelvis CT 08/26/21 17:29 IMPRESSION: 1. Mild pelvic ascites. No hepatic mass is demonstrated, limited evaluation without IV contrast. 2. Moderate length segment of wall thickening of bowel in the lower abdomen (image 129 series 2) with mild adjacent mesenteric edema suggesting enteritis, including infectious, inflammatory and edema causes. No bowel obstruction. Electronically Signed: Trenton Haines MD ([place]) at 22:21 EST , Service support , Physical Exam Const alert, oriented x3, no apparent distress and average body habitus Constitutional Narrative: Middle-aged white female sitting up in bed watching television, appears comfortable, nontoxic Exam Limitations: no limitations HEENT head/scalp atraumatic and moist oral mucous membranes Head and Scalp: normocephalic Resp normal respiratory effort, no retractions, no use of accessory muscles and clear to auscultation bilaterally Auscultation: Negative for crackles, rales, rhonchi or wheezes Cardio regular rate, regular rhythm, S1 normal heart sound, S2 normal heart sound, no murmurs, no rub, no gallops, no clicks and no JVD GI normal to inspection, nondistended, normoactive bowel sounds, soft to palpation, non-tender and non-distended Extremity no clubbing, cyanosis or edema Peripheral Pulses: Yes pulses 2+ throughout Skin skin turgor normal, no jaundice, no petechiae and no mottling Skin Narrative: Multiple skin lesions noted from picking, no current signs of active infection, no drainage or erythema Neuro oriented x3, moves all extremities and no focal motor deficits Sensorium / Orientation: awake and alert Speech: speech normal Assessment & Plan Assessment/Plan (1) Opiate withdrawal: (2) Hepatitis C: PLAN: Acute opiate withdrawal -Continue Subutex taper -Supportive medications -Patient would like Vivitrol upon discharge -180 has evaluated the patient and the discharge plan is for her to follow-up with an individual counselor at [facility] for MAT and follow-up counseling services Recent cellulitis -Patient with significant skin picking related to her polysubstance abuse -Based on review of medications she has completed her oral doxycycline and Keflex -We will discontinue these medications Hepatitis C -Patient is untreated and will not be able to start treatment until she is sober for 6 months -She was treated with a short course of Lasix but this was to be completed -She is following with Dr. Guthrie from gastroenterology -Recommend continued follow-up after discharge -No current acute issues Polysubstance abuse -Patient with history of IVDU -Tox screen on admission was negative -Treatment and process for opiate withdrawal DVT prophylaxis -Early ambulation Dispo: -Patient finishes Subutex taper late on Tuesday evening. We will plan on discharge Tuesday [facility]. Charges/Coding Visit Charges Inpatient E&M: 35524 Subs Hosp L2
[2021-08-27 12:57] VITALS: O2SAT 100
[2021-08-27 13:17] VITALS: BP 93/64; PULSE 86; RESP 14; TEMP 36.4; O2SAT 97
[2021-08-27] MEDS: hydrOXYzine PAM 25 MG Capsule 50 MG PO (14:38)
[2021-08-27] MEDS: traZODone 100 MG Tablet PO (21:19)
[2021-08-27 21:30] VITALS: BP 93/63; PULSE 85; RESP 16; TEMP 36.8; O2SAT 99
[2021-08-28 03:30] VITALS: BP 97/61; PULSE 68; RESP 16; TEMP 36.9; O2SAT 98
[2021-08-28] MEDS: Mupirocin Ointment 22gm Tube 1 APPLIC TOPICAL (07:13)
[2021-08-28 08:33] VITALS: BP 93/61; PULSE 92; RESP 14; TEMP 36.7; O2SAT 96
--- NOTE | 2021-08-28 10:45 | PCM.DC.SUM ---
Providers Date of Admission: 08/25/21 Primary Care Physician: No Primary Care Phys Reason For Visit: OPIATE WITHDRAWAL Diagnosis Discharge Diagnosis (1) Opiate withdrawal: Status: Acute Code(s): F11.23 - Opioid dependence with withdrawal (2) Hepatitis C: Status: Acute Code(s): B19.20 - Unspecified viral hepatitis C without hepatic coma Medications at Discharge Home Medications mupirocin 1 applic TOPICAL TID #1 tube 08/11/21 ondansetron HCl [Zofran] 4 mg PO Q6H PRN #20 tab 08/11/21 potassium chloride 20 mEq tablet,extended release 20 meq PO DAILY #7 tab 08/13/21 Hospital Course Operations None Procedures None Summary of Care Provided Minutes Spent on Discharge: 36 Hospital Course: Ann Akhtar is a 30-year-old white female presents the emergency department [facility] on 08/25/2021 with request for opiate detox. She is a longstanding history of polysubstance use that includes approximately 1/2 g of heroin daily 1/2 g of fentanyl daily, crack cocaine, and methamphetamines who was in acute opiate withdrawal. The last dose prior to admission was 24 hours. On admission she complained of abdominal cramping/pain, general body aches, rhinorrhea, piloerection, fatigue, restless legs, and significant fatigue. She was interested in attaining sobriety. She reported that she had been using for at least the last 3 years and has gone through withdrawal treatment previously. She did report on admission that she is used Subutex in the past and does not work well for her and she would prefer to be able to be placed on Vivitrol as an outpatient.A Covid test was obtained on admission and was negative. Her lab work was overall unremarkable. She had been being treated for cellulitis related to her picking but upon review of the antibiotic prescriptions these should have been completed and were discontinued during her hospitalization. She is also following as an outpatient with Dr. Guthrie from gastroenterology for her hepatitis C infection. She is aware that she will need 6 months of sobriety for treatment. He did order a CT scan of her abdomen and pelvis which did show some bowel wall thickening but the patient was asymptomatic without any constipation or diarrhea or abdominal pain during her hospitalization. She stopped taking her Subutex on the evening of August 27, 2021 and requested discharge on August 28, 2021. She was denying any further withdrawal symptoms and indicated she would like to continue with her outpatient follow-up. She is aware that she needs to continue to follow-up with Dr. Guthrie from gastroenterology as well. She was discharged in stable condition with no further signs or symptoms of withdrawal on August 28, 2021 with a discharge plan in place with regards to her opiate addiction. Discharge diagnoses: Acute opiate withdrawal-resolved Nonspecific bowel wall thickening Hepatitis C Polysubstance abuse Physical Exam Const alert, oriented x3, no apparent distress and average body habitus Constitutional Narrative: Middle-aged white female lying in bed with the covers over her head, minimal interaction but indicates she has not taken Suboxone since yesterday and would like to go home today General Appearance: cooperative, comfortable and well developed Orientation / Consciousness: awake Exam Limitations: no limitations HEENT normocephalic, head/scalp atraumatic, hearing grossly normal bilaterally and moist oral mucous membranes Eyes PERRL, EOMs intact bilaterally and conjunctivae normal Eyes Narrative: No scleral icterus Neck no lymphadenopathy, supple and no JVD Resp normal respiratory effort, no retractions, no use of accessory muscles and clear to auscultation bilaterally Auscultation: Negative for crackles, rales, rhonchi or wheezes Cardio regular rate, regular rhythm, S1 normal heart sound, S2 normal heart sound, no murmurs, no rub, no gallops, no clicks and no JVD GI normal to inspection, nondistended, normoactive bowel sounds, soft to palpation, non-tender and non-distended Extremity no clubbing, cyanosis or edema Skin skin turgor normal, no jaundice, no petechiae and no mottling Skin Narrative: Multiple skin lesions noted from picking, no current signs of active infection, no drainage or erythema Neuro oriented x3, moves all extremities and no focal motor deficits Sensorium / Orientation: awake and alert Speech: speech normal Psych Psych Narrative: Affect is flat with decreased interaction Medical Records Data Medical Nutrition Assessment Dietitian: Malnutrition Criteria Met Start: 08/26/21 11:39 Freq: Status: Active Protocol: Document 08/26/21 11:40 RMA (Rec: 08/26/21 11:40 RMA [id number]) Nutrition Malnutrition Evidence of Malnutrition Exists Yes Malnutrition (severe): Social/Behavioral/ Environmental Evidenced By Suboptimal Energy Intake ( Severe),Weight Loss (Severe) Clinical Problem Chronic Disease or Condition Related Malnutrition Etiology Severe protein-calorie malnutrition in the context of social circumstance/drug abuse related to inadequate oral intake Signs/Symptoms as evidenced by ~30% wt loss x 5-6 months and inadequate oral intake meeting less than 50% estimated nutrition needs Status Active Problem Recommendation Dietitian Recommendations/Changes Continue Regular diet/3 snacks daily as ordered. Will d/c ensure enlive with medpass due to pt refusal. Will add 240ml chocolate milkshake w/ whole milk TID with meals. Weight / BMI Weight Weight: 56.4 kg Body Mass Index (BMI) 23.5 ABG / Lab / Microbiology Data Result Diagrams: 08/25/21 17:02 08/25/21 17:02 Microbiology: Microbiology 08/25/21 17:02 Nasal Secretion SARS-CoV-2 Antigen (Rapid) - Final D/C Instructions Discharge Diet: No restrictions Meaningful Use Info Meaningful Use Diagnoses (Choose all that apply): None applicable Discharge Plan Admission Admit Date/Time: 08/25/21 17:11 Primary Reason for Your Visit: Opiate detox/acute withdrawal Attending Provider: Katia Jones Primary Care Provider: Care Physician,No Primary Instructions Additional Instructions / Restrictions: Follow-up with [facility] with an individual counselor as directed by 180 Discharge Orders/Prescriptions Prescriptions: Continued potassium chloride 20 mEq tablet extended release 20 meq PO DAILY Qty: 7 RF: 0 ondansetron HCl [Zofran] 4 mg tablet 4 mg PO Q6H PRN (Reason: nausea and vomiting) Qty: 20 RF: 0 mupirocin 2 % ointment 1 applic topical TID Qty: 1 RF: 0 Discontinued furosemide [Lasix] 20 mg tablet 20 mg PO BID Qty: 10 RF: 0 tramadol 50 mg tablet 50 mg PO Q6H PRN (Reason: pain) Qty: 14 RF: 0 cephalexin 500 MG capsule 500 mg PO 4X/DAY RF: 0 doxycycline hyclate 100 mg capsule 100 mg PO BID Qty: 20 RF: 0 Referrals / Follow Up: Berto Guthrie DO [STAFF PHYSICIAN] - See Referral Note (As directed) Care Physician,No Primary [Primary Care Provider] - Disposition Disposition (needs filled in before D/C Order can be placed): Home, Self Care Charges/Coding Visit Charges Inpatient E&M: 37647 Disch Hosp
[2021-08-28 10:47] VITALS: BP 107/61; PULSE 83; RESP 14; TEMP 36.6; O2SAT 100
== END 2021-08-28 12:53 | disposition home or self-care (01) | DRG 773 ==
LOC: ED 16:09 → MS3 17:39
PROVIDERS: Emergency Medicine; Admitting Provider Family Medicine; Emergency Provider Emergency Medicine; Visit Provider Internal Medicine
DX: F11.23 Opioid dependence with withdrawal (principal); F14.10 Cocaine abuse, uncomplicated; F15.10 Other stimulant abuse, uncomplicated; B17.10 Acute hepatitis C without hepatic coma; Z20.822 Contact with and (suspected) exposure to COVID-19; F17.210 Nicotine dependence, cigarettes, uncomplicated
CPT/HCPCS: 36415; 74176; 80053; 80307; 81001; 82077; 84703; 85025; 87426; 97802; 99282; A4216

== ENCOUNTER 2022-04-25 21:11 | Inpatient (IN) | payer MEDICAID, SELFPAY ==
[2022-04-25 21:11] VITALS: BP 109/75; PULSE 109; RESP 15; TEMP 36.6; O2SAT 100; BMI 23.3
[2022-04-25 22:05] VITALS: PULSE 74; RESP 16; TEMP 37.1; O2SAT 98
[2022-04-25 22:09] VITALS: BP 112/88
[2022-04-25 22:24] LABS: Absolute Lymphocyte Count 1.76 X10^3/uL (0.83-4.51); Absolute Neutrophil Count 4.7 X10^3/uL (2.0-7.7); Basophil# 0.05 X10^3/uL; Basophil% 0.7 % (0-1); Eosinophils% 1.4 % (0-5); Hemoglobin 13.5 g/dL (12.0-15.0); Lymphocyte # 1.76 X10^3/ul (0.83-4.51); Lymphocyte % 24.8 % (19-41); Mean Corp Hgb Conc 32.1 g/dL (32-36); Mean Corpuscular Hgb 29.3 pg (27.0-32.0); Mean Corpuscular Volume 91.3 fL (81-99); Mean Platelet Vol. 12.1 fl (6.2-12.0); Monocyte# 0.52 X10^3/uL; Monocyte% 7.3 % (0-10); NRBC Flagged by Analyzer 0 % (0-5); Neutrophil # 4.66 X10^3/uL (2.7-7.7); Neutrophil % 65.7 % (47-70); Platelet Count 306 K/mm3 (150-450); RBC Distribution Width CV 14.8 % (11.6-14.6); RBC Distribution Width SD 49.1 fl (35.1-43.9); White Blood Count 7.1 K/mm3 (4.4-11.0)
[2022-04-25 22:25] LABS: Internal QC Validated? YES +Cl - CLEAR BKGD
[2022-04-25 22:28] LABS: Pregnancy, Urine Negative Negative
[2022-04-25 22:41] LABS: Amphetamine Urine VISTA POSITIVE (<1000 ng/mL); Barbiturate Urine VISTA NEGATIVE (< 200 ng/mL); Benzodiazepine Urine VISTA NEGATIVE (< 200 ng/mL); Cocaine Urine VISTA POSITIVE (< 300 ng/mL); Ecstacy Urine VISTA POSITIVE (< 500 ng/mL); Methadone Urine VISTA NEGATIVE (< 300 ng/mL); PCP Urine VISTA NEGATIVE (< 25 ng/mL); THC Urine VISTA POSITIVE (< 50 ng/mL); Vista UDS pH Range 5
--- NOTE | 2022-04-25 22:55 | NURSING ---
Lab coming to redraw patient
--- NOTE | 2022-04-25 23:48 | PCM.HP.STD ---
HPI - General General Date of Admission: 04/26/22 Date of Service: 04/25/22 Chief Complaint: Desire for detoxification HPI Narrative BRADLEY DREW, is a 31 F with a significant history of tobacco abuse; hepatitis C; IV drug use who presents to the emergency department with help with detoxification. Of notes patient's drug of choice is fentanyl/heroin. He shoots about a gram to 2 and half grams of fentanyl per day. Last time she used was about 15 to 16 hours prior to presentation. She has been using since 2014 and was clean for 3 years. She resumed again in January 2021. In between she has been using has been ordered time except except times that she has gone to long-term. She came in with her fianc? for joint detoxification. Also patient has been using methamphetamine and crack cocaine about once a week or once every other week. She mainly smokes across cocaine and occasionally shoots. She shoots the methamphetamine. She reports withdrawal symptoms of chills; sweating and anxiety. [facility] Medical History (Updated 04/26/22 @ 00:42 by Lala Nelson) Anemia Anxiety Asthma Depression Hepatitis C Heroin abuse IV drug user Polysubstance abuse Smoker Substance abuse Allergy/AdvReac Type Severity Reaction Status Date / Time latex AdvReac Rash Verified 04/25/22 21:14 Family History Other COPD (chronic obstructive pulmonary disease) Diabetes Drug abuse Hypertension Surgical History H/O dilation and curettage Hx of cholecystectomy Social History household members: significant other and other details: BF substance user/IV drugs w/ hepatitis C, they have a child together. Smoking Status: Current every day smoker tobacco type: cigarettes alcohol intake: never substance use type: crack/cocaine, heroin, amphetamines, methamphetamine and other details: IVDA, ~ 1/2 gm fentanyl and heroin daily. ROS ROS Narrative Pertinent positives and pertinent negatives as noted in HPI. All other systems were reviewed and are negative. Vital Signs Vital Signs Vital Signs: 04/25/22 21:11 04/25/22 22:05 04/25/22 22:09 Temperature 97.9 F 98.7 F Temperature Source Temporal Temporal Pulse Rate 109 H 74 Respiratory Rate 15 16 Blood Pressure 109/75 112/88 H Blood Pressure Mean 86 96 Pulse Ox 100 98 Oxygen Delivery Method Room Air Room Air Weight Weight: 56.064 kg Body Mass Index (BMI) 23.3 Physical Exam Narrative Physical exam: General: Well-nourished, well-developed. Head: Normocephalic, atraumatic, no tenderness Eyes: Vision is grossly intact. EOMI ENT, no trauma, moist mucous membranes, no rhinorrhea Neck: Nontender, full range of motion, no spinal tenderness, deformities, step-off CVS: Regular rate and rhythm. S1-S2 present. No murmur, gallop or rub. Respiratory : clear to auscultation bilaterally, chest wall nontender, no wheezing Abdomen: Soft, nontender, nondistended, normal bowel sounds, no masses : Deferred Back: Nontender, no CVA tenderness, no midline spinal tenderness, deformities, step-offs Extremities: Nontender full range of motion, no trauma Skin: Multiple excoriations on the skin. Needle track linder. Normal color, no trauma. Neuro: Alert, oriented, cranial nerves II through XII grossly intact. Psychiatry: Normal mood. Normal affect. Not depressed. Not anxious. Results Medical Records Data Attestation: I reviewed the patient's medical records Lab / Micro Data Attestation: I reviewed the patient's lab results. Result Diagrams: 04/25/22 21:49 04/25/22 23:40 Labs: Laboratory Results - last 24 hr 04/25/22 21:49: WBC 7.1, RBC 4.60, Hgb 13.5, Hct 42.0, MCV 91.3, MCH 29.3, MCHC 32.1, RDW Std Deviation 49.1 H, RDW Coeff of Altagracia 14.8 H, Plt Count 306, MPV 12.1 H, Immature Gran % (Auto) 0.100, Neut % (Auto) 65.7, Lymph % (Auto) 24.8, [place] % (Auto) 7.3, Eos % (Auto) 1.4, Baso % (Auto) 0.7, Absolute Neuts (auto) 4.7, Absolute Lymphs (auto) 1.76, Nucleated RBC % 0 04/25/22 21:49: Sodium Cancelled, Potassium Cancelled, Chloride Cancelled, Carbon Dioxide Cancelled, Anion Gap Cancelled, BUN Cancelled, Creatinine Cancelled, Estim Creat Clear Calc Cancelled, Est GFR (MDRD) Af Amer Cancelled, Est GFR (MDRD) Non-Af Cancelled, BUN/Creatinine Ratio Cancelled, Glucose Cancelled, Calcium Cancelled, Total Bilirubin Cancelled, AST Cancelled, ALT Cancelled, Alkaline Phosphatase Cancelled, Total Protein Cancelled, Albumin Cancelled, Globulin Cancelled, Albumin/Globulin Ratio Cancelled 04/25/22 21:49: Ethyl Alcohol Cancelled 04/25/22 21:49: Urine Opiates Screen NEGATIVE, Urine Methadone Screen NEGATIVE, Ur Barbiturates Screen NEGATIVE, Ur Phencyclidine Scrn NEGATIVE, Ur Amphetamines Screen POSITIVE H, MDMA (Ecstasy) Screen POSITIVE H, U Benzodiazepines Scrn NEGATIVE, Urine Cocaine Screen POSITIVE H, U Cannabinoids Screen POSITIVE H, Ur Drug Screen Comment 04/25/22 21:49: Urine Test Negative Assessment & Plan Assessment/Plan (1) Opiate dependence: (2) Polysubstance abuse: PLAN: Plan Opioid dependence and withdrawal Urine toxicology reviewed positive for amphetamines; MDMA; cocaine and cannabinoids. Patient be started on Subutex and other adjunctive medications: Gabapentin as needed; dicyclomine as needed; Vistaril as needed; methocarbamol as needed; clonidine as needed; Imodium as needed; trazodone as needed and Zofran as needed. Monitor COWS and CINA score Tobacco abuse Counseled Nicotine patch and nicotine gum prescribed. Methamphetamine abuse and cocaine abuse Counseled. DVT prophylaxis Low risk Encourage to ambulate Charges/Coding Visit Charges Inpatient E&M: 35054 Init Hosp L2
[2022-04-26] VITALS (7 sets, daily range): BP systolic 87–108; BP diastolic 55–87; PULSE 78–108; RESP 16–18; TEMP 36.8–37.4; O2SAT 97–100; BMI 23.6
--- NOTE | 2022-04-26 00:01 | EX.ED.SAOD ---
HPI History of Present Illness Chief Complaint: Substance Abuse Informant: patient Narrative Narrative: Patient presenting wanting detox from fentanyl which she uses IV daily for over a year. Gets withdrawal symptoms when she stops. She last use earlier in the day and does not have any withdrawal symptoms currently. Not not suicidal, she presents with her significant other so they can both stop simultaneously. No recent illness or injury. PFSH PFS Medical History Anemia Anxiety Asthma Depression Hepatitis C Heroin abuse IV drug user Polysubstance abuse Smoker Substance abuse Allergy/AdvReac Type Severity Reaction Status Date / Time latex AdvReac Rash Verified 04/25/22 21:14 Family History Other COPD (chronic obstructive pulmonary disease) Diabetes Drug abuse Hypertension Surgical History H/O dilation and curettage Hx of cholecystectomy Social History household members: significant other and other details: BF substance user/IV drugs w/ hepatitis C, they have a child together. Smoking Status: Current every day smoker tobacco type: cigarettes alcohol intake: never substance use type: crack/cocaine, heroin, amphetamines, methamphetamine and other details: IVDA, ~ 1/2 gm fentanyl and heroin daily. ROS ROS ED Constitutional Constitutional ED: Denies chills or fever(s) Eyes Eyes: Denies change in vision or diplopia ENT ENT ED: Denies rhinorrhea or sore throat Cardiovascular Cardiovascular: Denies chest pain or palpitations Respiratory/Chest Respiratory/Chest: Denies cough or dyspnea Gastrointestinal Gastrointestinal: Denies abdominal pain, diarrhea, nausea or vomiting Genitourinary Genitourinary ED: Denies dysuria or hematuria Musculoskeletal Musculoskeletal: Denies back pain or neck pain Integumentary Denies abscess or rash Neurologic Neurologic: Denies headache(s), paresthesias or weakness Psychiatric Psychiatric: Denies anxiety or suicidal thoughts EXAM Physical Exam Const Vital Signs: 04/25/22 21:11 04/25/22 22:05 04/25/22 22:09 Temperature 97.9 F 98.7 F Temperature Source Temporal Temporal Pulse Rate 109 H 74 Respiratory Rate 15 16 Blood Pressure 109/75 112/88 H Blood Pressure Mean 86 96 Pulse Ox 100 98 Oxygen Delivery Method Room Air Room Air Positive well nourished and well developed General Appearance ED: well developed and NAD HEENT Reports moist mucous membranes normocephalic and atraumatic Eyes PERRL and EOMs intact bilaterally Neck full ROM and supple Resp normal respiratory effort and clear to auscultation bilaterally Cardio regular rate, regular rhythm and no murmurs GI non-tender and non-distended Auscultation: normoactive bowel sounds Palpation: soft Back/Spine no CVA tenderness General Back: other FROM Extremity normal to inspection General Extremety ED: Negative for edema, pulses abnormal or tenderness General Extremity: Negative for edema or pulses abnormal Neuro oriented x3, CN's II-XII intact bilaterally and no sensory deficits noted Sensorium / Orientation: awake and alert Motor Exam: strength 5/5 throughout Skin no rashes or lesions noted and no wounds Skin Narrative: Multiple track linder on both upper extremities, none appear to be infected or thrombosed. MDM MDM MDM Narrative Medical decision making narrative: Labs and toxicology obtained, patient with multiple substances positive in her drug screen. Not currently appearing to be in acute withdrawal, stable clinically and hemodynamically, discussed with hospitalist for admission to detox program. Lab Data Attestation: I reviewed the patient's lab results. Labs: Laboratory Results - last 24 hr 04/25/22 04/25/22 04/25/22 21:49 21:49 21:49 WBC 7.1 RBC 4.60 Hgb 13.5 Hct 42.0 MCV 91.3 MCH 29.3 MCHC 32.1 RDW Std Deviation 49.1 H RDW Coeff of Altagracia 14.8 H Plt Count 306 MPV 12.1 H Immature Gran % (Auto) 0.100 Neut % (Auto) 65.7 Lymph % (Auto) 24.8 [place] % (Auto) 7.3 Eos % (Auto) 1.4 Baso % (Auto) 0.7 Absolute Neuts (auto) 4.7 Absolute Lymphs (auto) 1.76 Nucleated RBC % 0 Sodium Cancelled Potassium Cancelled Chloride Cancelled Carbon Dioxide Cancelled Anion Gap Cancelled BUN Cancelled Creatinine Cancelled Estim Creat Clear Calc Cancelled Est GFR (MDRD) Af Amer Cancelled Est GFR (MDRD) Non-Af Cancelled BUN/Creatinine Ratio Cancelled Glucose Cancelled Calcium Cancelled Total Bilirubin Cancelled AST Cancelled ALT Cancelled Alkaline Phosphatase Cancelled Total Protein Cancelled Albumin Cancelled Globulin Cancelled Albumin/Globulin Ratio Cancelled Urine Test Urine Opiates Screen Urine Methadone Screen Ur Barbiturates Screen Ur Phencyclidine Scrn Ur Amphetamines Screen MDMA (Ecstasy) Screen U Benzodiazepines Scrn Urine Cocaine Screen U Cannabinoids Screen Ur Drug Screen Comment Ethyl Alcohol Cancelled 04/25/22 04/25/22 04/25/22 21:49 21:49 23:40 WBC RBC Hgb Hct MCV MCH MCHC RDW Std Deviation RDW Coeff of Altagracia Plt Count MPV Immature Gran % (Auto) Neut % (Auto) Lymph % (Auto) [place] % (Auto) Eos % (Auto) Baso % (Auto) Absolute Neuts (auto) Absolute Lymphs (auto) Nucleated RBC % Sodium 139 Potassium 3.7 Chloride 107 Carbon Dioxide 26.0 Anion Gap 6 BUN 9 Creatinine 0.72 Estim Creat Clear Calc 86.21 Est GFR (MDRD) Af Amer 122 Est GFR (MDRD) Non-Af 101 BUN/Creatinine Ratio 12.5 Glucose 87 Calcium 9.0 Total Bilirubin 0.40 AST 91 H ALT 153 H Alkaline Phosphatase 156 H Total Protein 7.4 Albumin 3.6 Globulin 3.8 Albumin/Globulin Ratio 0.9 Urine Test Negative Urine Opiates Screen NEGATIVE Urine Methadone Screen NEGATIVE Ur Barbiturates Screen NEGATIVE Ur Phencyclidine Scrn NEGATIVE Ur Amphetamines Screen POSITIVE H MDMA (Ecstasy) Screen POSITIVE H U Benzodiazepines Scrn NEGATIVE Urine Cocaine Screen POSITIVE H U Cannabinoids Screen POSITIVE H Ur Drug Screen Comment Ethyl Alcohol 04/25/22 23:40 WBC RBC Hgb Hct MCV MCH MCHC RDW Std Deviation RDW Coeff of Altagracia Plt Count MPV Immature Gran % (Auto) Neut % (Auto) Lymph % (Auto) [place] % (Auto) Eos % (Auto) Baso % (Auto) Absolute Neuts (auto) Absolute Lymphs (auto) Nucleated RBC % Sodium Potassium Chloride Carbon Dioxide Anion Gap BUN Creatinine Estim Creat Clear Calc Est GFR (MDRD) Af Amer Est GFR (MDRD) Non-Af BUN/Creatinine Ratio Glucose Calcium Total Bilirubin AST ALT Alkaline Phosphatase Total Protein Albumin Globulin Albumin/Globulin Ratio Urine Test Urine Opiates Screen Urine Methadone Screen Ur Barbiturates Screen Ur Phencyclidine Scrn Ur Amphetamines Screen MDMA (Ecstasy) Screen U Benzodiazepines Scrn Urine Cocaine Screen U Cannabinoids Screen Ur Drug Screen Comment Ethyl Alcohol < 3.0 Discharge Plan Dx/Rx/DC Orders Clinical Impression: Opiate dependence, Polysubstance abuse Disposition Disposition: Acute Care Hospital [facility] Discharge Date/Time: 04/26/22 00:20
[2022-04-26 00:16] LABS: Alcohol, Blood (Medical)-Serum < 3.0 mg/dL
[2022-04-26 00:25] LABS: ALB/GLOB Ratio 0.9 RATIO (0.9-2.4); AST(SGOT) 91 U/L (15-37); Alanine Aminotransfer ALT/SGPT 153 U/L (13-56); Albumin, Serum 3.6 g/dL (3.2-5.0); Alkaline Phosphatase 156 U/L (45-117); Anion Gap 6 (5-15); BUN 9 mg/dL (7-18); BUN/Creat Ratio 12.5 RATIO (10-20); Chloride 107 mmol/L (98-107); Creatinine, Serum 0.72 mg/dL (0.55-1.02); EST Glomerular Filtration Rate 101 mL/min (>60); Est Glom Filt Rate - Afr Amer 122 mL/min (>60); Estimated Creatinine Clearance 86.21 ml/min; Globulin 3.8 g/dL (2.2-4.2); Glucose 87 mg/dL (74-106); Potassium 3.7 mmol/L (3.5-5.1); Protein, Total 7.4 g/dL (6.4-8.2); Sodium Level 139 mmol/L (136-145)
[2022-04-26] MEDS: Nicotine Polacrilex 2 MG GUM PO (01:09)
[2022-04-26] MEDS: Methocarbamol 750 MG Tablet 1500 MG PO ×3 (01:41→21:39)
[2022-04-26] MEDS: traZODone 100 MG Tablet PO ×2 (01:41→21:39)
[2022-04-26] MEDS: hydrOXYzine PAM 25 MG Capsule 50 MG PO ×3 (01:41→21:39)
[2022-04-26] MEDS: Buprenorphine HCl 2 MG TAB.SUBL SL ×3 (02:53→18:07)
[2022-04-26] MEDS: BACITRACIN 15 GM Tube 1 APPLIC TOPICAL ×3 (03:48→21:30)
--- NOTE | 2022-04-26 12:04 | ADDICTION ---
This telegraphic typewriter installer met with PT to conduct ASAM, MSE, AUDIT, DUDIT assessments and to plan for d/c. PT A+Ox4 and participated actively. All assessments completed and placed in PT's chart. PT plans to f/u with [facility] for follow-up treatment services. [facility] will provide transportation post d/c from [facility].
[2022-04-26] MEDS: Gabapentin 300 MG Capsule PO (14:31)
[2022-04-27 02:09] VITALS: BP 95/38; PULSE 91; RESP 18; TEMP 37.3; O2SAT 98
[2022-04-27] MEDS: Buprenorphine HCl 2 MG TAB.SUBL SL ×3 (02:14→17:52)
[2022-04-27 08:15] VITALS: BP 100/61; PULSE 82; RESP 14; TEMP 36.8; O2SAT 98
[2022-04-27] MEDS: BACITRACIN 15 GM Tube 1 APPLIC TOPICAL (08:36)
--- NOTE | 2022-04-27 10:00 | PCM.PN.HOSP ---
Subjective Subjective Date of this dictation should read 04/27/2022: Patient was seen and examined today, she does not appear to be nervous or anxious at this time, patient complains of some muscle cramping but otherwise is doing okay. Objective Data Objective Data Vital Signs: Vital Signs Temp Pulse Resp BP Pulse Ox O2 Del Method 98.2 F 85 16 102/68 99 Room Air 04/27/22 19:43 04/27/22 19:43 04/27/22 19:43 04/27/22 19:43 04/27/22 19:43 04/27/22 19:45 Oxygen Delivery Method Room Air Weight: 56.699 kg Body Mass Index (BMI) 23.6 Lab / Micro Data Result Diagrams: 04/25/22 21:49 04/25/22 23:40 Physical Exam Const alert, oriented x3 and no apparent distress General Appearance: cooperative, well kempt and well developed Orientation / Consciousness: awake, oriented to person, oriented to place and oriented to time HEENT normocephalic and moist oral mucous membranes HEENT Narrative: Patient has scarred areas and eschars over her forehead and face area Eyes PERRL, EOMs intact bilaterally and conjunctivae normal Neck supple, no JVD, thyroid normal and no carotid bruits General: trachea midline Resp normal respiratory effort, no retractions, no use of accessory muscles and clear to auscultation bilaterally Auscultation: Negative for rales, rhonchi or wheezes Cardio regular rate, regular rhythm, S1 normal heart sound, S2 normal heart sound, no murmurs, no rub and no gallops GI normal to inspection, nondistended, normoactive bowel sounds, soft to palpation, non-tender and non-distended Extremity no clubbing, cyanosis or edema Skin no rashes or lesions noted General Skin Exam: no breakdown Neuro oriented x3, CN's II-XII intact bilaterally, moves all extremities, no focal motor deficits and no sensory deficits noted Sensorium / Orientation: awake and alert Speech: speech normal Psych affect normal Assessment & Plan Assessment/Plan (1) Opiate dependence: PLAN: Plan 1. Acute opiate withdrawal-continue present treatment at this time #2 polysubstance abuse-makes care, recovery, and treatment difficult Charges/Coding Visit Charges Inpatient E&M: 34727 Subs Hosp L2
[2022-04-27 19:43] VITALS: BP 102/68; PULSE 85; RESP 16; TEMP 36.8; O2SAT 99
--- NOTE | 2022-04-27 23:27 | PCM.HOSP.N ---
Hospitalist Note Patient left AMA 04/27/22 at ~ 11:28 pm.
--- NOTE | 2022-04-27 23:29 | NURSING ---
Pt left AMA.
== END 2022-04-27 22:29 | disposition left against medical advice (07) | DRG 770 ==
LOC: ED 04-26 00:03 → MS3 04-26 02:12
PROVIDERS: Admitting Provider Hospitalist; Emergency Provider Emergency Medicine; Visit Provider Internal Medicine
DX: F11.23 Opioid dependence with withdrawal (principal); F14.10 Cocaine abuse, uncomplicated; F15.10 Other stimulant abuse, uncomplicated; J45.909 Unspecified asthma, uncomplicated; F17.210 Nicotine dependence, cigarettes, uncomplicated; Z86.19 Personal history of other infectious and parasitic diseases
CPT/HCPCS: 36415; 80053; 80307; 81025; 82077; 85025; 99283; 99406

== ENCOUNTER 2022-08-27 14:35 | Inpatient (IN) | payer MEDICAID, SELFPAY ==
[2022-08-27 14:36] VITALS: BP 118/90; PULSE 105; RESP 18; TEMP 36.6; O2SAT 100; BMI 24.5
[2022-08-27 15:35] VITALS: RESP 16
--- NOTE | 2022-08-27 15:39 | EX.ED.SAOD ---
HPI History of Present Illness Chief Complaint: Substance Abuse Narrative Narrative: 31-year-old female presenting for detox from fentanyl and Suboxone. Patient states he was previously prescribed Suboxone. She states she also uses fentanyl IV, methamphetamine IV, sometimes crack cocaine. She smokes marijuana sometimes when she is nauseous. Patient states her last detox was last January. She states her last use of fentanyl was Tuesday. She has been using her Suboxone to kind of bridge herself but now wants to be detoxed. She does not have any withdrawal symptoms. She states she has known other medical problems [facility] Medical History Anemia Anxiety Asthma Depression Hepatitis C Heroin abuse IV drug user Polysubstance abuse Smoker Substance abuse Home Medications buprenorphine 8 mg-naloxone 2 mg sublingual tablet 2 tab sublingual DAILY 08/27/22 [History Last Taken Unknown] Allergy/AdvReac Type Severity Reaction Status Date / Time latex AdvReac Rash Verified 08/27/22 14:36 Family History Other COPD (chronic obstructive pulmonary disease) Diabetes Drug abuse Hypertension Surgical History H/O dilation and curettage Hx of cholecystectomy Social History household members: significant other and other details: BF substance user/IV drugs w/ hepatitis C, they have a child together. Smoking Status: Current every day smoker tobacco type: cigarettes alcohol intake: never substance use type: crack/cocaine, heroin, amphetamines, methamphetamine and other details: IVDA, ~ 1/2 gm fentanyl and heroin daily. ROS [facility] ED Constitutional Constitutional ED: Denies chills, fever(s) or sweats Eyes Eyes: Denies blurry vision or change in vision ENT ENT ED: Denies ear pain or sore throat Cardiovascular Cardiovascular: Denies chest pain, palpitations or racing heartbeat Respiratory/Chest Respiratory/Chest: Denies cough, dyspnea or sputum Gastrointestinal Gastrointestinal: Denies abdominal pain, constipation, diarrhea, nausea or vomiting Genitourinary Genitourinary ED: Denies dysuria, hematuria or urinary frequency Musculoskeletal Musculoskeletal: Denies arthralgias, myalgias or neck pain Integumentary Denies abscess, Abrasions or rash Neurologic Neurologic: Denies headache(s), paresthesias or weakness Psychiatric Psychiatric: Denies anxiety, depression, suicidal ideation or suicidal thoughts Endocrine Endocrinology: Denies polydipsia or polyuria EXAM Physical Exam Const Vital Signs: 08/27/22 14:36 08/27/22 15:35 Temperature 97.8 F Temperature Source Temporal Pulse Rate 105 H Respiratory Rate 18 16 Blood Pressure 118/90 H Blood Pressure Mean 99 Pulse Ox 100 Oxygen Delivery Method Room Air Positive well nourished General Appearance ED: NAD; Negative for pallor HEENT Reports moist mucous membranes atraumatic Eyes PERRL and EOMs intact bilaterally Lymph Lymphatic: no lymphadenopathy noted Chest Wall inspection of chest normal Resp normal respiratory effort Auscultation: Negative for rales, rhonchi or wheezes Cardio regular rate and regular rhythm Neuro oriented x3 and CN's II-XII intact bilaterally Sensorium / Orientation: alert Psych mental status grossly normal Skin General Skin Exam: Negative for jaundice or pallor MDM MDM MDM Narrative Medical decision making narrative: 31-year-old female presenting for opioid detox. She admits to Suboxone and fentanyl abuse IV. She has a history of crack cocaine abuse as well as use of marijuana. Blood was obtained and her CBC and BMP are normal. EtOH is negative at less than 3.0. Urine drug screen positive for amphetamines and cannabinoids. hCG negative. Patient not require any medications in the ED. I discussed with the hospitalist for admission. Impression: 1. Amphetamine abuse 2. Opioid abuse 3. Cannabinoid abuse 4. Opioid detox Lab Data Attestation: I reviewed the patient's lab results. Labs: Laboratory Results - last 24 hr 08/27/22 08/27/22 08/27/22 15:40 15:40 15:40 WBC 9.7 RBC 5.41 H Hgb 16.0 H Hct 51.0 H MCV 94.3 MCH 29.6 MCHC 31.4 L RDW Std Deviation 48.4 H RDW Coeff of Altagracia 13.9 Plt Count 352 MPV 10.8 Immature Gran % (Auto) 0.500 Neut % (Auto) 70.3 H Lymph % (Auto) 21.6 Hodgeman % (Auto) 3.6 Eos % (Auto) 3.1 Baso % (Auto) 0.9 Absolute Neuts (auto) 6.8 Absolute Lymphs (auto) 2.10 Nucleated RBC % 0 Sodium 137 Potassium 3.6 Chloride 103 Carbon Dioxide 28.0 Anion Gap 6 BUN 10 Creatinine 0.73 Estim Creat Clear Calc 85.03 Est GFR (MDRD) Af Amer 120 Est GFR (MDRD) Non-Af 99 BUN/Creatinine Ratio 13.7 Glucose 100 Calcium 9.6 Serum , Qual Urine Opiates Screen Urine Methadone Screen Ur Barbiturates Screen Ur Phencyclidine Scrn Ur Amphetamines Screen MDMA (Ecstasy) Screen U Benzodiazepines Scrn Urine Cocaine Screen U Cannabinoids Screen Ur Drug Screen Comment Ethyl Alcohol < 3.0 08/27/22 08/27/22 15:40 15:40 WBC RBC Hgb Hct MCV MCH MCHC RDW Std Deviation RDW Coeff of Altagracia Plt Count MPV Immature Gran % (Auto) Neut % (Auto) Lymph % (Auto) Hodgeman % (Auto) Eos % (Auto) Baso % (Auto) Absolute Neuts (auto) Absolute Lymphs (auto) Nucleated RBC % Sodium Potassium Chloride Carbon Dioxide Anion Gap BUN Creatinine Estim Creat Clear Calc Est GFR (MDRD) Af Amer Est GFR (MDRD) Non-Af BUN/Creatinine Ratio Glucose Calcium Serum , Qual NEGATIVE Urine Opiates Screen NEGATIVE Urine Methadone Screen NEGATIVE Ur Barbiturates Screen NEGATIVE Ur Phencyclidine Scrn NEGATIVE Ur Amphetamines Screen POSITIVE H MDMA (Ecstasy) Screen NEGATIVE U Benzodiazepines Scrn NEGATIVE Urine Cocaine Screen NEGATIVE U Cannabinoids Screen POSITIVE H Ur Drug Screen Comment Ethyl Alcohol Discharge Plan Triage Chief Complaint: Substance Abuse ED Provider: Wilson Pino Dx/Rx/DC Orders Prescriptions: No Action buprenorphine-naloxone 8-2 mg tablet, sublingual 2 tab SUBLINGUAL DAILY Label Comments: Take 16 mg under tongue once a day as directed Primary Care Provider: Care Physician,No Primary Referrals: Care Physician,No Primary [Primary Care Provider] -
[2022-08-27 15:51] LABS: Absolute Neutrophil Count 6.8 X10^3/uL (2.0-7.7); Basophil# 0.09 X10^3/uL; Basophil% 0.9 % (0-1); Eosinophils% 3.1 % (0-5); Lymphocyte % 21.6 % (19-41); Mean Corp Hgb Conc 31.4 g/dL (32-36); Mean Corpuscular Hgb 29.6 pg (27.0-32.0); Mean Corpuscular Volume 94.3 fL (81-99); Mean Platelet Vol. 10.8 fl (6.2-12.0); Monocyte# 0.35 X10^3/uL; Monocyte% 3.6 % (0-10); NRBC Flagged by Analyzer 0 % (0-5); Neutrophil # 6.82 X10^3/uL (2.7-7.7); Neutrophil % 70.3 % (47-70); Platelet Count 352 K/mm3 (150-450); RBC Distribution Width CV 13.9 % (11.6-14.6); RBC Distribution Width SD 48.4 fl (35.1-43.9); Red Blood Count 5.41 M/mm3 (4.2-5.4); White Blood Count 9.7 K/mm3 (4.4-11.0)
[2022-08-27 16:00] VITALS: RESP 18
[2022-08-27 16:05] LABS: Anion Gap 6 (5-15); BUN 10 mg/dL (7-18); BUN/Creat Ratio 13.7 RATIO (10-20); Calcium,Total 9.6 mg/dL (8.5-10.1); Chloride 103 mmol/L (98-107); Creatinine, Serum 0.73 mg/dL (0.55-1.02); EST Glomerular Filtration Rate 99 mL/min (>60); Est Glom Filt Rate - Afr Amer 120 mL/min (>60); Estimated Creatinine Clearance 85.03 ml/min; Glucose 100 mg/dL (74-106); Potassium 3.6 mmol/L (3.5-5.1); Sodium Level 137 mmol/L (136-145)
[2022-08-27 16:09] LABS: Amphetamine Urine VISTA POSITIVE (<1000 ng/mL); Barbiturate Urine VISTA NEGATIVE (< 200 ng/mL); Benzodiazepine Urine VISTA NEGATIVE (< 200 ng/mL); Cocaine Urine VISTA NEGATIVE (< 300 ng/mL); Ecstacy Urine VISTA NEGATIVE (< 500 ng/mL); Internal QC Validated? YES +Cl - CLEAR BKGD; Methadone Urine VISTA NEGATIVE (< 300 ng/mL); PCP Urine VISTA NEGATIVE (< 25 ng/mL); Pregnancy, Serum, hCG Quali. NEGATIVE Negative; THC Urine VISTA POSITIVE (< 50 ng/mL); Vista UDS pH Range 6
[2022-08-27 16:11] LABS: Alcohol, Blood (Medical)-Serum < 3.0 mg/dL
--- NOTE | 2022-08-27 16:32 | HP.PCM.HOS_ITS ---
HPI - General General Date of Admission: 08/27/22 Date of Service: 08/27/22 Chief Complaint: opioid detox HPI Narrative BRADLEY DREW, is a 31 F with a PMH as outlined who presents via the ED on 08/27/2022 for opioid detox. She uses fentanyl and suboxone; she uses the fentanyl IV, and also sometimes uses methamphetamine and crack cocaine. She last detoxed in January. Her last use of fentanyl was ~ 6 days ago. She was on suboxone which she says she got as a subscription and was using it instead of fentanul. She denied any tremors, shakes, abdominal cramps, increased sweating or any other symptoms. REview of systems was otherwise negative. Vitals were stable and CBC showed hemoglobin of 16, wbc of 9.7 and platelets of 352. Chemistry was unremarkable,a nd urine tox was positive for amphetamines and cannabinoids. Serum alcohol level was less than 3. She is being admitted to be managed for acute opioid withdrawal. [facility] Medical History Anemia Anxiety Asthma Depression Hepatitis C Heroin abuse IV drug user Polysubstance abuse Smoker Substance abuse Home Medications buprenorphine 8 mg-naloxone 2 mg sublingual tablet 2 tab sublingual DAILY 08/27/22 [History Last Taken Unknown] Allergy/AdvReac Type Severity Reaction Status Date / Time latex AdvReac Rash Verified 08/27/22 14:36 Family History Other COPD (chronic obstructive pulmonary disease) Diabetes Drug abuse Hypertension Surgical History H/O dilation and curettage Hx of cholecystectomy Social History household members: significant other and other details: BF substance user/IV drugs w/ hepatitis C, they have a child together. Smoking Status: Current every day smoker tobacco type: cigarettes alcohol intake: never substance use type: crack/cocaine, heroin, amphetamines, methamphetamine and other details: IVDA, ~ 1/2 gm fentanyl and heroin daily. ROS Constitutional Constitutional: Denies anorexia, chills, fatigue, fever(s), malaise or weakness Eyes Eyes: Denies change in vision ENT HEENT: Denies dysphagia, headache(s) or sore throat Cardiovascular Cardiovascular: Denies chest pain, dyspnea on exertion, edema, lightheadedness, orthopnea, palpitations, paroxysmal nocturnal dyspnea or rapid heart rate Respiratory/Chest Respiratory/Chest: Denies cough, dyspnea, shortness of breath at rest or shortness of breath with exertion Gastrointestinal Gastrointestinal: Denies abdominal pain, constipation, diarrhea, dyspepsia, nausea or vomiting Genitourinary Genitourinary: Denies dysuria Musculoskeletal Musculoskeletal: Denies arthralgias or joint pain Neurologic Neurologic: Denies confusion Psychiatric Psychiatric: Denies anxiety Endocrine Endocrinology: Denies change in body appearance Hematologic/Lymphatic Hematologic/Lymphatic: Denies anemia Vital Signs Vital Signs Vital Signs: 08/27/22 14:36 08/27/22 15:35 Temperature 97.8 F Temperature Source Temporal Pulse Rate 105 H Respiratory Rate 18 16 Blood Pressure 118/90 H Blood Pressure Mean 99 Pulse Ox 100 Oxygen Delivery Method Room Air Weight Weight: 130 lb Body Mass Index (BMI) 24.5 Physical Exam Const alert, oriented x3, no apparent distress and healthy appearing General Appearance: cooperative HEENT normocephalic, head/scalp atraumatic, hearing grossly normal bilaterally and moist oral mucous membranes Mouth: oral and palatal mucosa normal Eyes PERRL, EOMs intact bilaterally and conjunctivae normal Neck no lymphadenopathy and supple Resp normal respiratory effort, no retractions, no use of accessory muscles and clear to auscultation bilaterally Cardio regular rate, regular rhythm, S1 normal heart sound, S2 normal heart sound and no murmurs GI normal to inspection, nondistended, normoactive bowel sounds, soft to palpation, non-tender and non-distended Extremity normal to inspection, full ROM and no clubbing, cyanosis or edema Neuro oriented x3, CN's II-XII intact bilaterally, moves all extremities and no focal motor deficits Sensorium / Orientation: awake and alert Speech: speech normal Motor Exam: strength 5/5 throughout Psych affect normal Results Lab / Micro Data Result Diagrams: 08/27/22 15:40 08/27/22 15:40 Labs: Laboratory Results - last 24 hr 08/27/22 15:40: WBC 9.7, RBC 5.41 H, Hgb 16.0 H, Hct 51.0 H, MCV 94.3, MCH 29.6, MCHC 31.4 L, RDW Std Deviation 48.4 H, RDW Coeff of Altagracia 13.9, Plt Count 352, MPV 10.8, Immature Gran % (Auto) 0.500, Neut % (Auto) 70.3 H, Lymph % (Auto) 21.6, Burke % (Auto) 3.6, Eos % (Auto) 3.1, Baso % (Auto) 0.9, Absolute Neuts (auto) 6.8, Absolute Lymphs (auto) 2.10, Nucleated RBC % 0 08/27/22 15:40: Sodium 137, Potassium 3.6, Chloride 103, Carbon Dioxide 28.0, Anion Gap 6, BUN 10, Creatinine 0.73, Estim Creat Clear Calc 85.03, Est GFR (MDRD) Af Amer 120, Est GFR (MDRD) Non-Af 99, BUN/Creatinine Ratio 13.7, Glucose 100, Calcium 9.6 08/27/22 15:40: Ethyl Alcohol < 3.0 08/27/22 15:40: Urine Opiates Screen NEGATIVE, Urine Methadone Screen NEGATIVE, Ur Barbiturates Screen NEGATIVE, Ur Phencyclidine Scrn NEGATIVE, Ur Amphetamines Screen POSITIVE H, MDMA (Ecstasy) Screen NEGATIVE, U Benzodiazepines Scrn NEGATIVE, Urine Cocaine Screen NEGATIVE, U Cannabinoids Screen POSITIVE H, Ur Drug Screen Comment 08/27/22 15:40: Serum , Qual NEGATIVE Assessment & Plan Assessment/Plan (1) Opiate dependence: PLAN: Plan #Opioid detox * admit to med surg * start on opioid withdrawal protocol with buprenorphine * monitor CINA score * adjunctive meds for symptomatic relief * #NIcotine dependence: counseled to quit. Nicotine patch 21mg daily DVT prophylaxis: low risk, encourage to ambulate Charges/Coding Visit Charges Inpatient E&M: 44246 Init Hosp L3
[2022-08-27 16:52] VITALS: BP 116/84; PULSE 74; RESP 16; TEMP 36.6; O2SAT 96
[2022-08-27 17:44] VITALS: BMI 25.2
[2022-08-27 17:45] VITALS: BP 111/67; PULSE 103; RESP 16; TEMP 36.7; O2SAT 98
[2022-08-27] MEDS: hydrOXYzine PAM 25 MG Capsule 50 MG PO (18:11)
[2022-08-27] MEDS: Dicyclomine 10 MG Capsule 20 MG PO (18:11)
[2022-08-27] MEDS: Ondansetron 8 MG Tablet PO (18:11)
[2022-08-27 23:32] VITALS: BP 104/62; PULSE 97; RESP 14; TEMP 36.9; O2SAT 100
[2022-08-28] MEDS: Buprenorphine HCl 2 MG TAB.SUBL SL ×4 (00:22→23:41)
[2022-08-28 05:32] VITALS: BP 104/69; PULSE 89; RESP 14; TEMP 36.8; O2SAT 99
[2022-08-28] MEDS: Ondansetron 8 MG Tablet PO (05:36)
[2022-08-28] MEDS: Dicyclomine 10 MG Capsule 20 MG PO (05:36)
[2022-08-28] MEDS: Loperamide 2 MG Capsule PO (05:36)
[2022-08-28] MEDS: hydrOXYzine PAM 25 MG Capsule 50 MG PO (05:36)
[2022-08-28 07:45] VITALS: BP 104/67; PULSE 86; RESP 16; TEMP 37; O2SAT 99
--- NOTE | 2022-08-28 10:48 | PN.HOSP_ITS ---
Subjective Subjective Patient seen and examined. She had no active complaints today. She denied cramps, nausea, vomiting or diarrhea. Review of systems is otherwise negative. Objective Data Objective Data Vital Signs: Vital Signs Temp Pulse Resp BP Pulse Ox O2 Del Method 98.6 F 86 16 104/67 99 Room Air 08/28/22 07:45 08/28/22 07:45 08/28/22 07:45 08/28/22 07:45 08/28/22 07:45 08/28/22 07:45 Oxygen Delivery Method Room Air Weight: 133 lb 8 oz Body Mass Index (BMI) 25.2 Lab / Micro Data Result Diagrams: 08/27/22 15:40 08/27/22 15:40 Labs: Laboratory Results - last 24 hr 08/27/22 15:40: WBC 9.7, RBC 5.41 H, Hgb 16.0 H, Hct 51.0 H, MCV 94.3, MCH 29.6, MCHC 31.4 L, RDW Std Deviation 48.4 H, RDW Coeff of Altagracia 13.9, Plt Count 352, MPV 10.8, Immature Gran % (Auto) 0.500, Neut % (Auto) 70.3 H, Lymph % (Auto) 21.6, [place] % (Auto) 3.6, Eos % (Auto) 3.1, Baso % (Auto) 0.9, Absolute Neuts (auto) 6.8, Absolute Lymphs (auto) 2.10, Nucleated RBC % 0 08/27/22 15:40: Sodium 137, Potassium 3.6, Chloride 103, Carbon Dioxide 28.0, Anion Gap 6, BUN 10, Creatinine 0.73, Estim Creat Clear Calc 85.03, Est GFR (MDRD) Af Amer 120, Est GFR (MDRD) Non-Af 99, BUN/Creatinine Ratio 13.7, Glucose 100, Calcium 9.6 08/27/22 15:40: Ethyl Alcohol < 3.0 08/27/22 15:40: Urine Opiates Screen NEGATIVE, Urine Methadone Screen NEGATIVE, Ur Barbiturates Screen NEGATIVE, Ur Phencyclidine Scrn NEGATIVE, Ur Amphetamines Screen POSITIVE H, MDMA (Ecstasy) Screen NEGATIVE, U Benzodiazepines Scrn NEGATIVE, Urine Cocaine Screen NEGATIVE, U Cannabinoids Screen POSITIVE H, Ur Drug Screen Comment 08/27/22 15:40: Serum , Qual NEGATIVE Physical Exam Const alert, oriented x3, no apparent distress, average body habitus and healthy appearing General Appearance: cooperative HEENT normocephalic, head/scalp atraumatic, hearing grossly normal bilaterally and moist oral mucous membranes Head and Scalp: normocephalic Mouth: oral and palatal mucosa normal and dry mucous membranes Eyes PERRL, EOMs intact bilaterally and conjunctivae normal Neck no lymphadenopathy and supple Resp normal respiratory effort, no retractions, no use of accessory muscles and clear to auscultation bilaterally Cardio regular rate, regular rhythm, S1 normal heart sound, S2 normal heart sound and no murmurs GI normal to inspection, nondistended, normoactive bowel sounds, soft to palpation, non-tender and non-distended Extremity normal to inspection, full ROM and no clubbing, cyanosis or edema Neuro oriented x3, CN's II-XII intact bilaterally, moves all extremities and no focal motor deficits Sensorium / Orientation: awake, alert and oriented to person Speech: speech normal Motor Exam: strength 5/5 throughout Psych affect normal Assessment & Plan Assessment/Plan (1) Opiate dependence: PLAN: Plan #Opioid detox * on opioid withdrawal protocol with buprenorphine * monitor CINA score * adjunctive meds for symptomatic relief * #Nicotine dependence: counseled to quit. Nicotine patch 21mg daily DVT prophylaxis: low risk, encourage to ambulate Charges/Coding Visit Charges Inpatient E&M: 74067 Subs Hosp L2
[2022-08-28] MEDS: Gabapentin 300 MG Capsule PO ×2 (13:04→21:08)
[2022-08-28 14:12] VITALS: BP 118/69; PULSE 77; RESP 16; TEMP 36.8; O2SAT 99
[2022-08-28 20:54] VITALS: BP 109/73; PULSE 92; RESP 16; TEMP 36.8; O2SAT 98
[2022-08-28] MEDS: Methocarbamol 750 MG Tablet 1500 MG PO (21:08)
[2022-08-28] MEDS: traZODone 100 MG Tablet PO (21:08)
[2022-08-29 03:41] VITALS: BP 90/50; PULSE 84; RESP 16; TEMP 36.6; O2SAT 96
[2022-08-29] MEDS: Buprenorphine HCl 2 MG TAB.SUBL SL ×3 (07:35→23:33)
[2022-08-29 07:57] VITALS: BP 106/67; PULSE 76; RESP 16; TEMP 36.6; O2SAT 98
--- NOTE | 2022-08-29 10:51 | PN.HOSP_ITS ---
Subjective Subjective Patient seen and examined. She had no active complaints and had an uneventful night. Review of systems is otherwise negative. Objective Data Objective Data Vital Signs: Vital Signs Temp Pulse Resp BP Pulse Ox O2 Del Method 97.9 F 76 16 106/67 98 Room Air 08/29/22 07:57 08/29/22 07:57 08/29/22 07:57 08/29/22 07:57 08/29/22 07:57 08/29/22 07:57 Oxygen Delivery Method Room Air Weight: 133 lb 8 oz Body Mass Index (BMI) 25.2 Intake & Output: Intake and Output for Last 24 Hours 08/27/22 08/28/22 08/29/22 23:59 23:59 23:59 Intake Total 500 / 500 Balance 500 / 500 Lab / Micro Data Result Diagrams: 08/27/22 15:40 08/27/22 15:40 Physical Exam Const alert, oriented x3, no apparent distress, average body habitus and healthy a ppearing General Appearance: cooperative HEENT normocephalic, head/scalp atraumatic, hearing grossly normal bilaterally and moist oral mucous membranes Eyes PERRL, EOMs intact bilaterally and conjunctivae normal Neck no lymphadenopathy and supple Resp normal respiratory effort, no retractions, no use of accessory muscles and clear to auscultation bilaterally Cardio regular rate, regular rhythm, S1 normal heart sound, S2 normal heart sound and no murmurs GI normal to inspection, nondistended, normoactive bowel sounds, soft to palpation, non-tender and non-distended Extremity normal to inspection, full ROM and no clubbing, cyanosis or edema Neuro oriented x3, CN's II-XII intact bilaterally, moves all extremities and no focal motor deficits Sensorium / Orientation: awake, alert and oriented to person Speech: speech normal Motor Exam: strength 5/5 throughout Psych affect normal Assessment & Plan Assessment/Plan (1) Opiate dependence: PLAN: Plan #Opioid detox * on opioid withdrawal protocol with buprenorphine * monitor CINA score * adjunctive meds for symptomatic relief * #Nicotine dependence: counseled to quit. Nicotine patch 21mg daily DVT prophylaxis: low risk, encourage to ambulate Charges/Coding Visit Charges Inpatient E&M: 58009 Subs Hosp L2
[2022-08-29 11:51] VITALS: BP 110/75; PULSE 116; RESP 16; TEMP 36.3; O2SAT 99
[2022-08-29 15:38] VITALS: BP 102/68; PULSE 90; RESP 16; TEMP 37.3; O2SAT 99
[2022-08-29 21:37] VITALS: BP 110/75; PULSE 96; RESP 16; TEMP 37.2; O2SAT 98
[2022-08-29] MEDS: traZODone 100 MG Tablet PO (21:45)
[2022-08-30 03:40] VITALS: BP 100/67; PULSE 70; RESP 18; TEMP 36.1; O2SAT 98
[2022-08-30] MEDS: Dicyclomine 10 MG Capsule 20 MG PO (04:16)
--- NOTE | 2022-08-30 08:27 | DCINST_ITS ---
Discharge Instructions Diet Discharge Diet: No restrictions Activity Discharge Activity: Return to Normal Activity Weight Bearing Status: Weight bearing as tolerated Dressing / Incision Call your doctor if you observe: Fever of 101 or Higher, Shortness of breath, Swelling in the ankles and Increased palpitations (irregular heartbeat) Follow Up Care Test Results: Test results from this visit will be discussed in further detail at your follow- up appointment, if applicable. Discharge Plan Admission Admit Date/Time: 08/27/22 16:40 Primary Reason for Your Visit: acute opioid withdrawal Attending Provider: Susan Thompson Primary Care Provider: Care Physician,No Primary Instructions Patient Instructions: ED Opioid Withdrawal Discharge Orders/Prescriptions Prescriptions: Continued buprenorphine-naloxone 8-2 mg tablet, sublingual 2 tab SUBLINGUAL DAILY Label Comments: Take 16 mg under tongue once a day as directed Referrals / Follow Up: Brent Mejia MD [Med Staff - Active Staff] - Within 2 Weeks (see to establish PCP care) Care Physician,No Primary [Primary Care Provider] - Disposition Disposition (needs filled in before D/C Order can be placed): Home, Self Care
--- NOTE | 2022-08-30 08:28 | DS.PCM_ITS ---
Providers Date of Admission: 08/27/22 Date of Discharge: 08/30/22 Primary Care Physician: No Primary Care Phys Reason For Visit: OPIOID DETOX Diagnosis Discharge Diagnosis (1) Opiate dependence: Status: Acute Code(s): F11.20 - Opioid dependence, uncomplicated Plan #Opioid detox * on opioid withdrawal protocol with buprenorphine * monitor CINA score * adjunctive meds for symptomatic relief * #Nicotine dependence: counseled to quit. Nicotine patch 21mg daily DVT prophylaxis: low risk, encourage to ambulate Medications at Discharge Home Medications buprenorphine 8 mg-naloxone 2 mg sublingual tablet 2 tab sublingual DAILY detox 08/27/22 Hospital Course Operations None Procedures None Summary of Care Provided Minutes Spent on Discharge: 43 Hospital Course: BRADLEY DREW, is a 31 F with a PMH as outlined who presents via the ED on 08/27/2022 for opioid detox. She uses fentanyl and suboxone; she uses the fentanyl IV, and also sometimes uses methamphetamine and crack cocaine. She last detoxed in January. Her last use of fentanyl was ~ 6 days ago. She was on suboxone which she says she got as a subscription and was using it instead of fentanul. She denied any tremors, shakes, abdominal cramps, increased sweating or any other symptoms. REview of systems was otherwise negative. Vitals were stable and CBC showed hemoglobin of 16, wbc of 9.7 and platelets of 352. Chemistry was unremarkable,a nd urine tox was positive for amphetamines and cannabinoids. Serum alcohol level was less than 3. She is being admitted to be managed for acute opioid withdrawal. She was placed on opioid withdrawal protocol with buprenorphine. She tolerated the 3 day detox process. She remained stable and was discharged home on 08/30/2022. SHe is to follow up with [facility] on outpatient basis for rehab services, and was referred to [facility] to establish PCP care. Patient seen and examined prior to discharge. she felt well and had no active complaints. She had an uneventful night, and review of systems was otherwise negative. Labs and vitals reviewed. Home meds reviewed and reconciled. Physical Exam Const alert, oriented x3, no apparent distress, average body habitus and healthy appearing General Appearance: cooperative, comfortable and well kempt Orientation / Consciousness: awake Exam Limitations: no limitations HEENT normocephalic, head/scalp atraumatic, hearing grossly normal bilaterally and moist oral mucous membranes Mouth: oral and palatal mucosa normal Eyes PERRL, EOMs intact bilaterally and conjunctivae normal Neck no lymphadenopathy and supple Resp normal respiratory effort, no retractions, no use of accessory muscles and clear to auscultation bilaterally Cardio regular rate, regular rhythm, S1 normal heart sound, S2 normal heart sound and no murmurs GI normal to inspection, nondistended, normoactive bowel sounds, soft to palpation, non-tender and non-distended Extremity normal to inspection, full ROM and no clubbing, cyanosis or edema Skin no rashes or lesions noted Neuro oriented x3, CN's II-XII intact bilaterally, moves all extremities and no focal motor deficits Sensorium / Orientation: awake, alert and oriented to person Speech: speech normal Motor Exam: strength 5/5 throughout Psych affect normal Weight / BMI Weight Weight: 133 lb 8 oz Body Mass Index (BMI) 25.2 ABG / Lab / Microbiology Data Result Diagrams: 08/27/22 15:40 08/27/22 15:40 D/C Instructions Discharge Diet: No restrictions Weight Bearing Status: Weight bearing as tolerated Call your doctor if you observe: Fever of 101 or Higher, Shortness of breath, Swelling in the ankles and Increased palpitations (irregular heartbeat) Meaningful Use Info Meaningful Use Diagnoses (Choose all that apply): None applicable Discharge Plan Admission Admit Date/Time: 08/27/22 16:40 Primary Reason for Your Visit: acute opioid withdrawal Attending Provider: Susan Thompson Primary Care Provider: Care Physician,No Primary Instructions Patient Instructions: ED Opioid Withdrawal Discharge Orders/Prescriptions Prescriptions: Continued buprenorphine-naloxone 8-2 mg tablet, sublingual 2 tab SUBLINGUAL DAILY Label Comments: Take 16 mg under tongue once a day as directed Referrals / Follow Up: Brent Mejia MD [Med Staff - Active Staff] - Within 2 Weeks (see to establish PCP care) Care Physician,No Primary [Primary Care Provider] - Disposition Disposition (needs filled in before D/C Order can be placed): Home, Self Care Charges/Coding Visit Charges Inpatient E&M: 01535 Disch Hosp
[2022-08-30 09:23] VITALS: BP 107/70; PULSE 65; RESP 18; TEMP 36.7; O2SAT 99
--- NOTE | 2022-08-30 09:43 | PHA.DC.MR ---
Pharmacy Service has performed discharge medication reconciliation for this patient. The patient's discharge medication list was reviewed for discrepancies and discrepancies were resolved. Home Medications buprenorphine 8 mg-naloxone 2 mg sublingual tablet 2 tab sublingual DAILY detox 08/27/22
== END 2022-08-30 10:19 | disposition home or self-care (01) | DRG 772 ==
LOC: ED 15:49 → MS3 17:08
PROVIDERS: Admitting Provider Student in an Organized Health Care Education/Training Program; Emergency Provider Student in an Organized Health Care Education/Training Program; Visit Provider Student in an Organized Health Care Education/Training Program
DX: F11.23 Opioid dependence with withdrawal (principal); F12.10 Cannabis abuse, uncomplicated; F15.10 Other stimulant abuse, uncomplicated; F17.210 Nicotine dependence, cigarettes, uncomplicated; Z86.19 Personal history of other infectious and parasitic diseases
CPT/HCPCS: 80048; 80307; 82077; 84703; 85025; 99283; 99406

== ENCOUNTER 2022-09-15 20:43 | Emergency (ER) | payer MEDICAID, SELFPAY ==
[2022-09-15 20:44] VITALS: BP 133/103; PULSE 112; RESP 18; TEMP 35.6; O2SAT 98; BMI 25.3
--- NOTE | 2022-09-15 21:11 | EDS_ITS ---
HPI History of Present Illness Chief Complaint: Substance Abuse Informant: patient Narrative Narrative: Patient presents requesting detox from fentanyl. She was in our detox program from August 27 to . She states she was clean for about a week and then started using fentanyl again. She uses about a gram a day through IV. Patient also admits to some methamphetamine use. She states she did not follow-up with anybody when she was discharged last time. Her plan is now to go live with her grandmother to try to get more support in her recovery. [facility] Medical History Anemia Anxiety Asthma Depression Fibrosis of liver Hepatitis C Heroin abuse IV drug user Opiate dependence Polysubstance abuse Smoker Substance abuse Allergy/AdvReac Type Severity Reaction Status Date / Time latex AdvReac Rash Verified 09/15/22 20:44 Family History Other COPD (chronic obstructive pulmonary disease) Diabetes Drug abuse Hypertension Surgical History H/O dilation and curettage Hx of cholecystectomy Social History household members: significant other and other details: BF substance user/IV drugs w/ hepatitis C, they have a child together. Smoking Status: Current every day smoker tobacco type: cigarettes alcohol intake: never substance use type: crack/cocaine, heroin, amphetamines, methamphetamine and other details: IVDA, ~ 1/2 gm fentanyl and heroin daily. ROS ROS ED Constitutional Constitutional ED: Denies chills or fever(s) Eyes Eyes: Denies change in vision or discharge from eye(s) ENT ENT ED: Denies discharge from eye(s), rhinorrhea or sore throat Cardiovascular Cardiovascular: Denies chest pain or palpitations Respiratory/Chest Respiratory/Chest: Denies cough or dyspnea Gastrointestinal Gastrointestinal: Denies abdominal pain, diarrhea, nausea or vomiting Genitourinary Genitourinary ED: Denies dysuria Musculoskeletal Musculoskeletal: Denies back pain or extremity pain Integumentary Denies Abrasions or rash Neurologic Neurologic: Denies headache(s) or weakness Psychiatric Psychiatric: Reports anxiety Allergic/Immunologic Allergic/Immunologic ED: Denies lip swelling or urticaria EXAM Physical Exam Const Vital Signs: 09/15/22 20:44 Temperature 96.0 F L Temperature Source Temporal Pulse Rate 112 H Respiratory Rate 18 Blood Pressure 133/103 H Blood Pressure Mean 113 Pulse Ox 98 Oxygen Delivery Method Room Air Positive well nourished and well developed General Appearance ED: well developed HEENT Reports normocephalic and head/scalp atraumatic Eyes PERRL and EOMs intact bilaterally Neck supple Chest Wall inspection of chest normal and palpation of chest normal Resp normal respiratory effort and clear to auscultation bilaterally Cardio regular rhythm Rate: tachycardic GI normal to inspection, nondistended, normoactive bowel sounds Palpation: soft Extremity normal to inspection Neuro oriented x3 and no sensory deficits noted Sensorium / Orientation: alert Motor Exam: strength 5/5 throughout Psych Mood & Affect: anxious Skin Skin Narrative: Multiple track linder noted on her arms. MDM MDM MDM Narrative Medical decision making narrative: Labs for addiction medicine were ordered. Multiple attempts were made to get blood from the patient without success. I did review her most recent labs from just a couple weeks ago. It appears that she had elevation in LFTs in April, but was not checked on her most recent admission. Urine test is negative. Urine tox screen is obtained and is positive for amphetamines, MDMA, cocaine. Patient be discussed with hospitalist for admission to the detox program. Lab Data Labs: Laboratory Results - last 24 hr 09/15/22 09/15/22 21:45 21:45 Urine Test Negative Urine Opiates Screen NEGATIVE Urine Methadone Screen NEGATIVE Ur Barbiturates Screen NEGATIVE Ur Phencyclidine Scrn NEGATIVE Ur Amphetamines Screen POSITIVE H MDMA (Ecstasy) Screen POSITIVE H U Benzodiazepines Scrn NEGATIVE Urine Cocaine Screen POSITIVE H U Cannabinoids Screen NEGATIVE Ur Drug Screen Comment Discharge Plan Triage Chief Complaint: Substance Abuse ED Provider: Tabatha Chamberlain Dx/Rx/DC Orders Clinical Impression: Desire for detoxification, Polysubstance abuse Primary Care Provider: Care Physician,No Primary Referrals: Care Physician,No Primary [Primary Care Provider] - Disposition Disposition: Acute Care Hospital [facility]
[2022-09-15 22:15] LABS: Internal QC Validated? YES +Cl - CLEAR BKGD; Pregnancy, Urine Negative Negative
[2022-09-15 22:27] LABS: Amphetamine Urine VISTA POSITIVE (<1000 ng/mL); Barbiturate Urine VISTA NEGATIVE (< 200 ng/mL); Benzodiazepine Urine VISTA NEGATIVE (< 200 ng/mL); Cocaine Urine VISTA POSITIVE (< 300 ng/mL); Ecstacy Urine VISTA POSITIVE (< 500 ng/mL); Methadone Urine VISTA NEGATIVE (< 300 ng/mL); PCP Urine VISTA NEGATIVE (< 25 ng/mL); THC Urine VISTA NEGATIVE (< 50 ng/mL); Vista UDS pH Range 6
--- NOTE | 2022-09-15 23:07 | HP.PCM.HOS_ITS ---
HPI - General General Date of Admission: 09/15/22 Date of Service: 09/15/22 Chief Complaint: Request for opioid detox HPI Narrative BRADLEY DREW, is a 31 F w/ history of hepatitis C, opioid use d/o and amphetamine use disorder who presented to [facility] 09/15/2022 requesting detox from opioids. She has been using opioids for about 8 to 9 years and presently injects fentanyl 1 g/day. Her longest period of sobriety was around 2017 and she had 3 years sober. She did spend August to October 2017-2019 and a inpatient rehab and reports this was her longest rehab stay. She was here for detox 08/27 and was discharged with instructions to follow-up with 180 on an outpatient basis. She has since relapsed and has been using fentanyl 1 g a day since shortly after hospitalization and reports she does want detox at this time and plans to live with her grandmother after discharge. Currently unsure if she wants to go to rehab and she wants to consider it. In addition to fentanyl she reports she uses methamphetamine 1-2 times a week. Denies alcohol use. Does smoke 1 pack/day and requests nicotine patch. At present reports she is beginning to have some abdominal cramping but no other withdrawal symptoms yet at this time. In the ER labs were attempted but multiple providers unable to achieve venipuncture. Patient denies any physical complaints, will order a.m. labs and try again but no indication that urgent laboratory draw is needed at this time but will continue to monitor. [facility] Medical History Anemia Anxiety Asthma Depression Fibrosis of liver Hepatitis C Heroin abuse IV drug user Opiate dependence Polysubstance abuse Smoker Substance abuse Allergy/AdvReac Type Severity Reaction Status Date / Time latex AdvReac Rash Verified 09/15/22 20:44 Family History Other COPD (chronic obstructive pulmonary disease) Diabetes Drug abuse Hypertension Surgical History H/O dilation and curettage Hx of cholecystectomy Social History household members: significant other and other details: BF substance user/IV drugs w/ hepatitis C, they have a child together. Smoking Status: Current every day smoker tobacco type: cigarettes alcohol intake: never substance use type: crack/cocaine, heroin, amphetamines, methamphetamine and other details: IVDA, ~ 1/2 gm fentanyl and heroin daily. Vital Signs Vital Signs Vital Signs: 09/15/22 20:44 Temperature 96.0 F L Temperature Source Temporal Pulse Rate 112 H Respiratory Rate 18 Blood Pressure 133/103 H Blood Pressure Mean 113 Pulse Ox 98 Oxygen Delivery Method Room Air Weight Weight: 60.781 kg Body Mass Index (BMI) 25.3 Physical Exam Const alert and no apparent distress Constitutional Narrative: Oriented HEENT normocephalic and head/scalp atraumatic Eyes Eyes Narrative: EOM grossly intact, anicteric Neck supple Resp normal respiratory effort and clear to auscultation bilaterally Cardio regular rhythm Cardio Narrative: Slightly tachycardic GI soft to palpation, non-tender and non-distended Extremity Extremity Narrative: No edema appreciated Neuro moves all extremities Neuro Narrative: No overt focal deficits appreciated Psych Psych Narrative: Cooperative, fidgeting Results Lab / Micro Data Labs: Laboratory Results - last 24 hr 09/15/22 21:45: Urine Opiates Screen NEGATIVE, Urine Methadone Screen NEGATIVE, Ur Barbiturates Screen NEGATIVE, Ur Phencyclidine Scrn NEGATIVE, Ur Amphetamines Screen POSITIVE H, MDMA (Ecstasy) Screen POSITIVE H, U Benzodiazepines Scrn NEGATIVE, Urine Cocaine Screen POSITIVE H, U Cannabinoids Screen NEGATIVE, Ur Drug Screen Comment 09/15/22 21:45: Urine Test Negative Assessment & Plan Assessment/Plan (1) Desire for detoxification: (2) Polysubstance abuse: PLAN: Plan #Acute opiate withdrawal - Subutex taper initiated - As needed Tylenol, ibuprofen, bowel regimen, gabapentin, Bentyl, Vistaril, methocarbamol, clonidine - As needed trazodone nightly - As needed antiemetics -Once patient begins to clinically improve will discuss further discharge planning #Polysubstance abuse Endorsed amphetamine use 1-2 times per week UDS positive for amphetamines, MDMA, cocaine Supportive care Opioid detox #History of hepatitis C Per her report, untreated and at this time would not be a candidate for treatment with active substance use Would benefit from following as an outpatient Will attempt labs again in the a.m. and check LFTs at that time #DVT ppx: Ambulatory, low risk Deena Rodríguez MD Charges/Coding Visit Charges Inpatient E&M: 62692 Init Hosp L2
[2022-09-15 23:15] VITALS: BP 134/74; PULSE 66; RESP 17; TEMP 36.8; O2SAT 99
--- NOTE | 2022-09-15 23:36 | ED.RN ---
patient left the department approximately 10 minutes ago
--- NOTE | 2022-09-16 00:06 | PCM.HOSP.N ---
Hospitalist Note ELOPED FROM ED AFTER EVAL/ADMIT ORDERS PLACED
== END 2022-09-15 23:38 | disposition left against medical advice (07) ==
PROVIDERS: Emergency Provider Emergency Medicine; Visit Provider Emergency Medicine
DX: F14.90 Cocaine use, unspecified, uncomplicated (principal); F15.10 Other stimulant abuse, uncomplicated; F11.20 Opioid dependence, uncomplicated; F17.210 Nicotine dependence, cigarettes, uncomplicated; J45.909 Unspecified asthma, uncomplicated
CPT/HCPCS: 80307; 81025; 99283

== ENCOUNTER 2023-09-19 19:11 | Emergency (ER) | payer MEDICAID, SELFPAY ==
[2023-09-19 19:12] VITALS: BP 93/74; PULSE 115; RESP 20; TEMP 36.4; O2SAT 100; BMI 33.0
--- NOTE | 2023-09-19 19:40 | EX.ED.DYSGE1 ---
HPI <SHALINI Torres - Last Filed: 09/19/23 21:09> History of Present Illness Chief Complaint: Abd Pain Narrative Narrative: 40-year-old female presents with 1 week of increased abdominal distention and pain. A week ago when it started she vomited and had sulfur like burps but since then has had no nausea or vomiting and is tolerating p.o. intake. She has not had a bowel movement in a couple days but prior to that was going normally and denies black or bloody bowel movements. Her urine is dark and she has some burning with urination. She states a few years ago when this happened she was diagnosed with bilateral pleural effusions and abdominal ascites secondary to liver fibrosis. She denies drinking alcohol or having history of heavy drinking. She states she is taking some [id number] liver supplement. She no longer has a primary care doctor or follows up with GI. She has had her gallbladder removed and a D&C. PFS <SHALINI Torers - Last Filed: 09/19/23 21:09> [facility] Medical History Anemia Anxiety Asthma Depression Fibrosis of liver Hepatitis C Heroin abuse IV drug user Opiate dependence Polysubstance abuse Smoker Substance abuse Home Medications cephalexin 500 mg capsule 500 mg PO TID #30 CAPSULES 09/19/23 [Rx Last Taken Unknown] Allergy/AdvReac Type Severity Reaction Status Date / Time latex AdvReac Rash Verified 09/19/23 19:12 Family History Other COPD (chronic obstructive pulmonary disease) Diabetes Drug abuse Hypertension Surgical History H/O dilation and curettage Hx of cholecystectomy Social History household members: significant other and other details: BF substance user/IV drugs w/ hepatitis C, they have a child together. Smoking Status: Current every day smoker tobacco type: cigarettes alcohol intake: never substance use type: crack/cocaine, heroin, amphetamines, methamphetamine and other details: IVDA, ~ 1/2 gm fentanyl and heroin daily. ROS <SHALINI Torres - Last Filed: 09/19/23 21:09> ROS ED ROS Narrative Constitutional: Negative for fever, chills, malaise. CVS: Negative for chest pain, syncope. Respiratory: Negative for shortness of breath. GI: Positive for abdominal pain, nausea, vomiting. Negative for melena, hematochezia. : Positive for dysuria. EXAM <SHALINI Torres - Last Filed: 09/19/23 21:09> Physical Exam Narrative Exam Narrative: CONST: Patient sitting in no acute distress. EYES: Normal inspection. NECK: Normal inspection. RESP: No respiratory distress, CTAB. CVS: Rapid but regular, no murmur, no gallop. ABD: Moderate abdominal distention and ascites, epigastric tenderness, no guarding or rebound. Normal bowel sounds SKIN: Color normal, no rash, warm, dry, intact. EXTREMITIES: Normal appearance, no pedal edema. NEURO: Oriented x4. PSYCH: Normal affect. Const Vital Signs: 09/19/23 19:12 09/19/23 21:36 Temperature 97.5 F L Temperature Source Temporal Pulse Rate 115 H 105 H Respiratory Rate 20 H 16 Blood Pressure 93/74 101/71 Blood Pressure Mean 80 81 Pulse Ox 100 97 Oxygen Delivery Method Room Air <Dr. Renan Gomes MD - Last Filed: 09/19/23 22:06> Physical Exam Const Vital Signs: 09/19/23 19:12 09/19/23 21:36 Temperature 97.5 F L Temperature Source Temporal Pulse Rate 115 H 105 H Respiratory Rate 20 H 16 Blood Pressure 93/74 101/71 Blood Pressure Mean 80 81 Pulse Ox 100 97 Oxygen Delivery Method Room Air MDM <SHALINI Torres - Last Filed: 09/19/23 21:09> MDM MDM Narrative Medical decision making narrative: Patient presents with 1 week of abdominal pain and distention. She has history of liver disease. Records show she has history of hepatitis C and polysubstance abuse although she did not provide this information. She is mildly hypertensive and tachycardic but appears well and nontoxic. She has moderate abdominal distention or abdominal tenderness with no peritoneal signs. Labs and urine were ordered. Drug screen is positive for opiates, barbiturates, amphetamines, MDMA and cocaine. Multiple attempts were made for peripheral IVs and patient would not tolerate it Pulling arms away. She could not be calmed down and states she did not want anyone to try again. She would rather leave and follow-up outpatient. Patient does have capacity to make this decision and I provided a PCP referral and Dr. Guthrie's number again as she has seen him in the past. Lab Data Attestation: I reviewed the patient's lab results. Labs: Laboratory Results - last 24 hr 09/19/23 19:48 Urine Color Yellow Urine Clarity Clear Urine pH 5.0 Ur Specific [place] 1.015 Urine Protein 100 H Urine Glucose (UA) Normal Urine Ketones Negative Urine Occult Blood 10 H Urine Nitrite Positive H Urine Bilirubin 1 H Urine Urobilinogen 4 H Ur Leukocyte Esterase 500 H Urine RBC 0 SEEN Urine WBC 50-100 SEEN Ur Squamous Epith Cells 0-5 SEEN Urine Bacteria RARE Urine Mucus 0 SEEN Urine Opiates Screen POSITIVE H Urine Methadone Screen NEGATIVE Ur Barbiturates Screen NEGATIVE Ur Phencyclidine Scrn NEGATIVE Ur Amphetamines Screen POSITIVE H MDMA (Ecstasy) Screen POSITIVE H U Benzodiazepines Scrn NEGATIVE Urine Cocaine Screen POSITIVE H U Cannabinoids Screen NEGATIVE Ur Drug Screen Comment <Dr. Renan Gomes MD - Last Filed: 09/19/23 22:06> [facility] Lab Data Labs: Laboratory Results - last 24 hr 09/19/23 19:48 Urine Color Yellow Urine Clarity Clear Urine pH 5.0 Ur Specific [place] 1.015 Urine Protein 100 H Urine Glucose (UA) Normal Urine Ketones Negative Urine Occult Blood 10 H Urine Nitrite Positive H Urine Bilirubin 1 H Urine Urobilinogen 4 H Ur Leukocyte Esterase 500 H Urine RBC 0 SEEN Urine WBC 50-100 SEEN Ur Squamous Epith Cells 0-5 SEEN Urine Bacteria RARE Urine Mucus 0 SEEN Urine Opiates Screen POSITIVE H Urine Methadone Screen NEGATIVE Ur Barbiturates Screen NEGATIVE Ur Phencyclidine Scrn NEGATIVE Ur Amphetamines Screen POSITIVE H MDMA (Ecstasy) Screen POSITIVE H U Benzodiazepines Scrn NEGATIVE Urine Cocaine Screen POSITIVE H U Cannabinoids Screen NEGATIVE Ur Drug Screen Comment Treatment and Re-Evaluation :: I have personally performed a face to face assessment of the patient and have reviewed the YOMI Note. I performed a substantive portion of the visit including all aspects of the following. My gilliam findings include: History: Presents with abdomen feeling more distended. This has happened before with ascites. She does have a history of hepatitis C but states she was never treated. She has not seen gastroenterology in a couple years. She is also had some darker urine and some slight burning. She denies any drug use at this time but did in the past. Exam: GEN awake and alert. She is oriented. She does have several skin sores that have been picked but none of these look infected. Oropharynx is moist. I do not see any icterus. Lungs are clear. Saturations are normal at 100% on room air showing no hypoxia. Heart is regular rate is about 100. Abdomen is prominent. Not notably tender though. No CVA tenderness. No umbilical herniation. Medical Decision Making: The plan was to do extensive laboratory workup initially. Depending on results and patient we may end up doing further workup. Patient got very upset with an IV. She refused to get an IV. I talked to her. We then let her talk to her mother for a while. I went back and talked with her. She does not want an IV. She does not want us to draw blood even though I explained that we could likely draw blood relatively easily. Patient has capacity to understand and ability to make her own decisions. I did get back her urine toxicology while she was here that shows multiple substances although she states she is not using now. After the patient left I get back urine that shows an infection. I will write a prescription for cephalexin. This should be safe even if she has some hepatic issues. We will make a call to her if we can reach her to have her pick this up. Discharge Plan Triage Chief Complaint: Abd Pain ED Midlevel Provider: Jannette Taylor ED Provider: Renan Gomes Dx/Rx/DC Orders Clinical Impression: Abdominal pain, Polysubstance abuse, Abdominal ascites, UTI (urinary tract infection) Instructions: Abdominal Pain Prescriptions: New cephalexin [cephalexin] 500 mg capsule 500 mg PO TID Qty: 30 0RF Primary Care Provider: Care Physician,No Primary Referrals: Wilfred Valente DO [Med Staff - [employer]] - Care Physician,No Primary [Primary Care Provider] - Activity Restrictions/Additional Instructions: Please follow-up with a primary care doctor and Dr. Guthrie. Return to the ER for reevaluation at any time Disposition Disposition: Against Medical Advice Discharge Date/Time: 09/19/23 21:37
[2023-09-19 20:16] LABS: Amphetamine Urine VISTA POSITIVE (<1000 ng/mL); Barbiturate Urine VISTA NEGATIVE (< 200 ng/mL); Benzodiazepine Urine VISTA NEGATIVE (< 200 ng/mL); Cocaine Urine VISTA POSITIVE (< 300 ng/mL); Ecstacy Urine VISTA POSITIVE (< 500 ng/mL); Methadone Urine VISTA NEGATIVE (< 300 ng/mL); PCP Urine VISTA NEGATIVE (< 25 ng/mL); THC Urine VISTA NEGATIVE (< 50 ng/mL); Vista UDS pH Range 5
--- NOTE | 2023-09-19 20:40 | ED.RN ---
THIS RN AND SARAH VOSS AT BEDSIDE ATTEMPTING IV ASSISTED WITH ULTRASOUND. THIS RN X1 UNSUCCESSFUL ATTEMPT. SARAH VOSS AT BEDSIDE ATTEMPTING A SECOND TIME. PT STATES SHES DONE. DOES NOT WANT TO BE HERE ANYMORE AND WOULD LIKE TO LEAVE. PT STATES HER HAND IS NUMB AND SHE DOESN'T CARE. SHE IS READY TO GO. PT STATES EVERY TIME SHE COMES HERE IT TAKES FOREVER FOR AN IV. PT STATES SHE IS DONE AND LEAVING. PTS MOTHER AT BEDSIDE REQUESTING SOME PRIVACY WITH PATIENT. RN AND SARAH STEPPED OUT OF ROOM. DR. KAT NOTIFIED
[2023-09-19 21:09] LABS: Mucous, Urine 0 SEEN /hpf (<or=2+)
[2023-09-19 21:30] LABS: Color, Urine Yellow (Yellow); Glucose, Dipstick Normal (Normal); Ketone-Dipstick Negative (Negative); Leukocyte Esterase-Dipstick 500 /ul (Negative); Nitrite-Dipstick Positive (Negative); Occult Blood-Urine 10 /ul (Negative); Protein-Dipstick 100 mg/dl (Negative); Specific Gravity, Urine 1.015 (1.002-1.030); Urine Clarity Clear (Clear); Urine Urobilinogen 4 mg/dl (Normal)
[2023-09-19 21:36] VITALS: BP 101/71; PULSE 105; RESP 16; O2SAT 97
[2023-09-19 21:37] LABS: Urine Bilirubin Dipstick 1 mg/dL (Negative)
[2023-09-19 21:38] LABS: White Blood Cells 50-100 SEEN /hpf (0-5)
[2023-09-19 21:39] LABS: Bacteria RARE /hpf (None Seen); Red Blood Cells-Urine 0 SEEN /hpf (0-5); Squamous Epithelial Cells - UA 0-5 SEEN /hpf (5-10)
--- NOTE | 2023-09-19 22:20 | ED.RN ---
Dr Gomes requesting that we contact patient regarding the prescription he sent to the pharmacy after patient had left. This RN spoke with pt on the phone letting her know the doctor sent a antibiotic prescription to [facility] pharmacy for her UTI. Pt denies questions.
== END 2023-09-19 21:37 | disposition left against medical advice (07) ==
PROVIDERS: Physician Assistant; Emergency Provider Emergency Medicine; Visit Provider Emergency Medicine
DX: N39.0 Urinary tract infection, site not specified (principal); F11.99 Opioid use, unspecified with unspecified opioid-induced disorder; F15.99 Other stimulant use, unspecified with unspecified stimulant-induced disorder; F14.90 Cocaine use, unspecified, uncomplicated; R18.8 Other ascites; F17.210 Nicotine dependence, cigarettes, uncomplicated; R10.9 Unspecified abdominal pain
CPT/HCPCS: 80307; 81001; 99282